=== PATIENT | female | born 1940 | race Caucasian/White ===

== ENCOUNTER 2017-05-30 16:30 | Inpatient (IN) | payer OTHER ==
--- NOTE | 2017-05-30 16:40 | DR.GENAD ---
HPI - HPI Comment HPI Comment: HISTORY CHF. COUGHING WHEN PATIENT LAY DOWN AND COUGH IS NON PRODUCTIVE. NO FEVER. PATIENT HAVE EXERSIONAL DYSPNEA SA WELL. - Complaint/Symptoms Chief Complaint Doctors Comments: INCREASING SOB AND WEIGHT GAIN TIMES FEW DAYS. - Nurses notes reviewed Nurses Notes Review: Yes - Source History Provided: Parent - Mode of Arrival Mode of Arrival: Wheelchair - Timing Came on: Suddenly - Duration Duration: Constant Duration: Days - Severity Severity: Moderate PMH - PMH Past Medical History: COPD, Dementia, Diabetes, Dyslipidemia, Hyperthyroidism Past Surgical History: Yes Surgical History: Appendectomy, Hysterectomy, Other - Social History Do you use any recreational Drugs:: No ROS - Review of Systems Constitutional: Weakness, Fatigue. negative: Chills, Fever Eyes: No Symptoms Reported. negative: Eye Pain, Discharge ENTM: No Symptoms Reported. negative: Ear Pain, Nose Discharge, Nose Congestion , Throat Pain Respiratoy: Non-Productive Cough, Short of Breath, Wheezing. negative: Hemoptysis Cardiovascular: Chest Pain, Edema Gastrointestinal/Abdominal: No Symptoms Reported Genitourinary: No Symptoms Reported Neurological: No Symptoms Reported Musculoskeletal: Muscle Pain Integumentary: No Symptoms Reported Hematologic/Lymphatic: No Symptoms Reported Endocrine: No Symptoms Reported All Other Systems: Reviewed and Negative PE - Vital Signs Vitals: Temperature 98.0 F Pulse Rate [Apical] 82 Pulse Rate 112 Respiratory Rate 18 Blood Pressure [Left Arm] 171/70 Blood Pressure [Right Arm] 137/61 Blood Pressure 144/60 O2 Sat by Pulse Oximetry 99 - General Limitations: No Limitations General Appearance: Alert - Head Head Exam: Normal Inspection - Eyes Eye exam: Normal Appearance - ENT ENT Exam: Normal External Ear Exam External Ear Exam: Normal External Inspection TM/Canal Exam: Bilateral Normal Nose Exam: Normal Nose Exam Mouth Exam: Normal Inspection Throat Exam: Normal Inspection - Neck Neck Exam: Trachea Midline - Chest Chest Inspection: Symmetric Chest Wall Rise - Respiratory Respiratory Exam: Normal Lung Sounds Bilat Respiratory Exam: Lower Clear to Auscultation - Cardiovascular Cardiovascular Exam: Regular Rate, Normal Rhythm, Normal Heart Sounds - Abdominal Exam Abdominal Exam: Normal Bowel Sounds, Soft. negative: Tenderness - Extremities Extremities Exam: Edema. negative: Calf Tenderness - Back Back Exam: Paraspinal Tenderness - Neurologic Neurological Exam: Alert, Oriented X3 - Psychiatric Psychiatric Exam: Normal Affect, Normal Mood - Skin Skin Exam: Erythema MDM - Differential Diagnosis Differential Diagnosis: CHF, COPD EXACERBATION, PNEUMONIA, BRONCHITIS, CP, [place] Course - Treatment Treatment: SEE ORDERS. IV LASIX, IV SOLUMEDROL AND NEB TREATMENT IN ED. - Reevaluation 1st: Improved - Consultation Consultation Comments: DISCUSS PATIENT WITH DR. CARTAGENA. HE WILL ADMIT PATIENT. - Education/Counseling Education/Counseling: Patient, Education Educated On: Treatment, Diagnosis ROR - Labs Reviewed Laboratory Results Reviewed?: Yes Result Diagrams: 05/30/17 16:38 05/30/17 16:38 Laboratory: WBC 8.3 X10^3/uL (3.6-10.0) 05/30/17 16:38 RBC 3.71 X10^6/uL (3.5-5.4) 05/30/17 16:38 Hgb 9.6 g/dL (12.0-16.0) L 05/30/17 16:38 Hct 29.7 % (36.0-47.0) L 05/30/17 16:38 MCV 80.2 fL (80.0-100.0) 05/30/17 16:38 MCH 26.0 pg (27.0-34.0) L 05/30/17 16:38 MCHC 32.4 g/dL (33.0-35.0) L 05/30/17 16:38 RDW 20.4 % (11.6-16.5) H 05/30/17 16:38 Plt Count 216 X10^3/uL (150.0-450.0) 05/30/17 16:38 Plt Count Comment Adequate (ADEQUATE) 05/30/17 16:38 MPV 9.8 fL (7.4-11.0) 05/30/17 16:38 Neut % 60.6 % (42.0-75.0) 05/30/17 16:38 Lymph % 29.5 % (21.0-51.0) 05/30/17 16:38 [place] % 5.1 % (0.0-13.0) 05/30/17 16:38 Eos % 3.5 % (0.9-2.9) H 05/30/17 16:38 Baso % 1.3 % (0.2-1.0) H 05/30/17 16:38 Neut # 5.0 x10^3/uL (2.2-4.8) H 05/30/17 16:38 Lymph # 2.4 X10^3/uL (1.3-2.9) 05/30/17 16:38 [place] # 0.4 x10^3/uL (0.3-0.8) 05/30/17 16:38 Eos # 0.3 x10^3/uL (0.0-0.2) H 05/30/17 16:38 Baso # 0.1 X10^3/uL (0.0-0.1) 05/30/17 16:38 Absolute Nucleated RBC 0.1 /100WBC 05/30/17 16:38 Plt Morphology Comment Normal (NORMAL) 05/30/17 16:38 RBC Morphology Abnormal (NORMAL) A 05/30/17 16:38 Anisocytosis 1+ A 05/30/17 16:38 Sodium 145 mmol/L (136-145) 05/30/17 16:38 Corrected Sodium 147 mmol/L (136-145) H 05/30/17 16:38 Potassium 4.6 mmol/L (3.5-5.1) 05/30/17 16:38 Chloride 107 mmol/L (98-107) 05/30/17 16:38 Carbon Dioxide 33.5 mmol/L (21-32) H 05/30/17 16:38 BUN 30 mg/dL (7-18) H 05/30/17 16:38 Creatinine 1.39 mg/dL (0.55-1.02) H 05/30/17 16:38 Est GFR (MDRD) Af Amer 48 (>60) L 05/30/17 16:38 Est GFR (MDRD) Non-Af 39 (>60) L 05/30/17 16:38 Glucose 171 mg/dL (65-99) H 05/30/17 16:38 Calcium 8.8 mg/dL (8.5-10.1) 05/30/17 16:38 Corrected Calcium 9.5 mg/dL (8.5-10.1) 05/30/17 16:38 Total Bilirubin 0.30 mg/dL (0.2-1.0) 05/30/17 16:38 AST 14 Units/L (15-37) L 05/30/17 16:38 ALT 16 Units/L (12-78) 05/30/17 16:38 Alkaline Phosphatase 79 Units/L (46-116) 05/30/17 16:38 Creatine Kinase 33 Units/L (26-192) 05/30/17 16:38 CK-MB (CK-2) 1.4 ng/mL (0-4.0) 05/30/17 16:38 CK/CKMB % Calc 4.2 % (<4) 05/30/17 16:38 Troponin I < 0.02 ng/mL (0-1.5) 05/30/17 16:38 B-Natriuretic Peptide 602 pg/mL (0-79) H* 05/30/17 16:38 Total Protein 7.4 g/dL (6.4-8.2) 05/30/17 16:38 Albumin 3.1 g/dL (3.4-5.0) L 05/30/17 16:38 Globulin 4.3 g/dL (2.5-4.5) 05/30/17 16:38 Albumin/Globulin Ratio 0.7 Ratio (1.1-2.1) L 05/30/17 16:38 Specimen Type Catherized urine 05/30/17 17:38 Urine Color Yellow (YELLOW) 05/30/17 17:38 Urine Appearance Clear (CLEAR) 05/30/17 17:38 Urine pH 5.0 (5.0 - 8.0) 05/30/17 17:38 Ur Specific [place] 1.010 (1.000-1.030) 05/30/17 17:38 Urine Protein Negative (NEGATIVE) 05/30/17 17:38 Urine Glucose (UA) Negative (NEGATIVE) 05/30/17 17:38 Urine Ketones Negative (NEGATIVE) 05/30/17 17:38 Urine Occult Blood 1+ (NEGATIVE) 05/30/17 17:38 Urine Nitrite Negative (NEGATIVE) 05/30/17 17:38 Urine Bilirubin Negative (NEGATIVE) 05/30/17 17:38 Urine Urobilinogen Normal (NORMAL) 05/30/17 17:38 Ur Leukocyte Esterase Negative (NEGATIVE) 05/30/17 17:38 Urine RBC 1-3 /HPF (NEGATIVE) 05/30/17 17:38 Urine WBC 2-3 /HPF (NEGATIVE) 05/30/17 17:38 Ur Squamous Epith Cells Rare /HPF (NEGATIVE) 05/30/17 17:38 Urine Bacteria Trace /HPF (NEGATIVE) 05/30/17 17:38 Ur Culture Indicated? No/not indicated 05/30/17 17:38 - XRAY XRAY Interpreted by: Radiologist XRAY Findings: REPORT DISCUSS WITH PATIENT. - EKG Rhythm: NSR (EKG NOTED.) - Diagnosis Discharge Problem: Respiratory distress CHF (congestive heart failure) Qualifiers: Congestive heart failure type: combined Congestive heart failure chronicity: acute on chronic Qualified Code(s): I50.43 - Acute on chronic combined systolic (congestive) and diastolic (congestive) heart failure Chest pain Qualifiers: Chest pain type: precordial pain Qualified Code(s): R07.2 - Precordial pain - Discharge Plan Disposition: 09 ADMITTED INPATIENT Condition: Stable - Follow ups/Referrals - Instructions
[2017-05-30] MEDS ORDERED: LASIX IVP ONE ×2 (16:55→17:05)
[2017-05-30] MEDS ORDERED: DUONEB 0.5 MG/3 MG NEB ONE (16:55)
[2017-05-30] MEDS ORDERED: SOLU-Medrol 125 MG VIAL IVP ONE (16:56)
[2017-05-30] MEDS ORDERED: DUONEB 0.5 MG/3 MG ONE (17:03)
[2017-05-30] MEDS ORDERED: SOLU-Medrol 125 MG VIAL ONE (17:05)
[2017-05-30 17:07] LABS: BASOPHILS # (AUTO) 0.1 X10^3/uL (0.0-0.1); BASOPHILS % (AUTO) 1.3 % (0.2-1.0); EOSINOPHILS # (AUTO) 0.3 x10^3/uL (0.0-0.2); EOSINOPHILS % (AUTO) 3.5 % (0.9-2.9); HEMATOCRIT 29.7 % (36.0-47.0); HEMOGLOBIN 9.6 g/dL (12.0-16.0); LYMPHOCYTES # (AUTO) 2.4 X10^3/uL (1.3-2.9); LYMPHOCYTES % (AUTO) 29.5 % (21.0-51.0); MEAN CORPUSCULAR HGB CONC 32.4 g/dL (33.0-35.0); MEAN CORPUSCULAR VOLUME 80.2 fL (80.0-100.0); MEAN PLATELET VOLUME 9.8 fL (7.4-11.0); MONOCYTES # (AUTO) 0.4 x10^3/uL (0.3-0.8); MONOCYTES % (AUTO) 5.1 % (0.0-13.0); NEUTROPHILS % (AUTO) 60.6 % (42.0-75.0); PLATELET COUNT 216 X10^3/uL (150.0-450.0); RED BLOOD COUNT 3.71 X10^6/uL (3.5-5.4); RED CELL DISTRIBUTION WIDTH 20.4 % (11.6-16.5); WHITE BLOOD COUNT 8.3 X10^3/uL (3.6-10.0)
[2017-05-30 17:19] LABS: BLOOD UREA NITROGEN 30 mg/dL (7-18); CALCIUM 8.8 mg/dL (8.5-10.1); CARBON DIOXIDE 33.5 mmol/L (21-32); CHLORIDE 107 mmol/L (98-107); COR NA(FOR HYPERGLY) 147 mmol/L (136-145); CREATININE 1.39 mg/dL (0.55-1.02); GLUCOSE 171 mg/dL (65-99); SODIUM 145 mmol/L (136-145); TROPONIN I < 0.02 ng/mL (0-1.5); eGFR BLACK RACES 48 (>60); eGFR NON BLACK RACES 39 (>60)
[2017-05-30 17:20] LABS: PLATELET MORPHOLOGY COMMENT NORMAL (NORMAL)
[2017-05-30 17:21] LABS: ANISOCYTOSIS 1+
[2017-05-30 17:24] LABS: ALANINE AMINOTRANSFERASE 16 Units/L (12-78); ALBUMIN 3.1 g/dL (3.4-5.0); ALKALINE PHOSPHATASE 79 Units/L (46-116); ASPARTATE AMINO TRANSFERASE 14 Units/L (15-37); CKMB % 4.2 % (<4); COR CA(FOR HYPOALB) 9.5 mg/dL (8.5-10.1); CREATINE KINASE 33 Units/L (26-192); CREATINE KINASE MB 1.4 ng/mL (0-4.0); TOTAL PROTEIN 7.4 g/dL (6.4-8.2)
[2017-05-30 17:41] LABS: B-TYPE NATRIURETIC PEPTIDE 602 pg/mL (0-79)
[2017-05-30 17:44] LABS: BILIRUBIN,URINE NEGATIVE (NEGATIVE); BLOOD/HEMOGLOBIN,URINE 1+ (NEGATIVE); GLUCOSE, URINE NEGATIVE (NEGATIVE); KETONES,URINE NEGATIVE (NEGATIVE); LEUKOCYTE ESTERASE ,URINE NEGATIVE (NEGATIVE); NITRITES,URINE NEGATIVE (NEGATIVE); PROTEIN,URINE NEGATIVE (NEGATIVE); UROBILINOGEN,URINE NORMAL (NORMAL)
--- NOTE | 2017-05-30 17:44 | RAD ---
HISTORY: Shortness of breath Study: Chest one view Comparison: November 02, 2016 Findings: The heart is enlarged. No congestive heart failure is noted. No acute alveolar infiltrates or pleura l effusions are identified. The bony thorax is unremarkable with the exception of old rib fractures on the left. IMPRESSION: Cardiomegaly without congestive heart failure Lungs clear Reported By:
[2017-05-30 17:59] LABS: APPEARANCE,URINE CLEAR (CLEAR); BACTERIA,URINE TRACE /HPF (NEGATIVE); COLOR,URINE YELLOW (YELLOW); SQUAMOUS EPITHELIAL CELL,UR RARE /HPF (NEGATIVE)
[2017-05-30] MEDS: TYLENOL #3 TAB (W/CODEINE) PO PRN (21:19)
[2017-05-30] MEDS: SNACK - Diabetic Appropriate PO SCH (21:21)
[2017-05-30] MEDS: HumuLIN R SUBCUT PRN (23:25)
[2017-05-30 23:40] LABS: CKMB % 3.8 % (<4); CREATINE KINASE 29 Units/L (26-192); CREATINE KINASE MB 1.1 ng/mL (0-4.0); TROPONIN I < 0.02 ng/mL (0-1.5)
[2017-05-31 05:25] LABS: BASOPHILS % (AUTO) 0.3 % (0.2-1.0); EOSINOPHILS % (AUTO) 0.1 % (0.9-2.9); HEMATOCRIT 30.6 % (36.0-47.0); MEAN CORPUSCULAR HEMOGLOBIN 25.7 pg (27.0-34.0); MEAN CORPUSCULAR HGB CONC 32.6 g/dL (33.0-35.0); MONOCYTES # (AUTO) 0 x10^3/uL (0.3-0.8); MONOCYTES % (AUTO) 0.5 % (0.0-13.0); NEUTROPHILS # (AUTO) 7.7 x10^3/uL (2.2-4.8); NEUTROPHILS % (AUTO) 88.1 % (42.0-75.0); PLATELET COUNT 199 X10^3/uL (150.0-450.0); RED BLOOD COUNT 3.87 X10^6/uL (3.5-5.4); RED CELL DISTRIBUTION WIDTH 20.3 % (11.6-16.5); WHITE BLOOD COUNT 8.7 X10^3/uL (3.6-10.0)
[2017-05-31] MEDS: TYLENOL #3 TAB (W/CODEINE) PO PRN (05:26)
[2017-05-31 05:32] LABS: ALBUMIN 2.9 g/dL (3.4-5.0); CALCIUM 8.6 mg/dL (8.5-10.1); CARBON DIOXIDE 34.3 mmol/L (21-32); CHOL/HDL RATIO 2.9 (0.0-5.0); COR CA(FOR HYPOALB) 9.5 mg/dL (8.5-10.1); CREATININE 1.34 mg/dL (0.55-1.02); TOTAL PROTEIN 7.3 g/dL (6.4-8.2)
[2017-05-31] MEDS: HumuLIN R SUBCUT PRN ×3 (05:41→20:49)
[2017-05-31 05:49] LABS: CREATINE KINASE 33 Units/L (26-192); CREATINE KINASE MB < 1.0 ng/mL (0-4.0); TROPONIN I < 0.02 ng/mL (0-1.5)
[2017-05-31 05:53] LABS: ANISOCYTOSIS 1+; PLATELET MORPHOLOGY COMMENT NORMAL (NORMAL)
--- NOTE | 2017-05-31 08:32 | RAD ---
Chest, one view Indication: Shortness of breath Comparison: May 30, 2017 Findings: There is stable enlargement of the cardiac silhouette without evidence of congestive failu re. No focal consolidation, significant effusion or pneumothorax is identified. Remote left-clavicul ar and rib fractures are again noted. Regional skeleton is otherwise intact. Impression: Stable exam without acute cardiopulmonary abnormality. Reported By:
[2017-05-31] MEDS ORDERED: PATIENT'S HOME MEDICATION SC SCH (09:00)
[2017-05-31] MEDS: NORVASC TAB 5 MG PO SCH (10:10)
[2017-05-31] MEDS ORDERED: PATIENT'S HOME MEDICATION (Apixaban [Eliquis] 2.5 MG) PO SCH (10:15)
--- NOTE | 2017-05-31 10:22 | DR.H&P ---
H&P - History & Physical for Day of: H&P Date: 05/30/17 - Chief Complaint Chief Complaint: COUGH, SHORTNESS OF BREATH, WEIGHT GAIN, CHEST PRESSURE - Allergies Allergies/Adverse Reactions: Allergies Allergy/AdvReac Type Severity Reaction Status Date / Time lovastatin Allergy Verified 05/30/17 16:56 - History of Present Illness History of Present Illness: IS A 76 YEAR OLD PATIENT OF OURS WHO PRESENTED TO THE EMERGENCY ROOM WITH COMPLAINTS OF NON-PRODUCTIVE COUGH, SHORTNESS OF BREATH, WEIGHT GAIN, AND CHEST PRESSURE. PATIENT REPORTED THAT SYMPTOMS BEGAN 2 DAYS PRIOR TO COMING TO THE ER. ON EXAMINATION, LUNGS ARE NOTED WITH WHEEZING BILATERALLY. SHE HAS BILATERAL PITTING EDEMA TO UPPER AND LOWER EXTREMETIES. BOWEL SOUNDS ARE NORMAL IN ALL QUADRANTS. ON ARRIVAL TO ER, VITALS ARE 98.0-82-18-99%-144/60. CBC REPORTS WBC 8.3, RBC 3.71, HGB 9.6, HCT 29.7. CMP REPORTS SODIUM 145, CARBON DIOXIDE 33.5, VUN 30, CREATININE 1.39, GLUCOSE 171, AST 14, BNP 602, ALBUMIN 3.1. SERIAL CARDIAC ENZYMES AND EKG WNL. CHEST XRAY STABLE. SHE WAS GIVEN SOLUMEDROL 125MG IV, LASIX 40MG IV, AND DUONEB X 1 DOSE IN ER. PATIENT REPORTED IMPROVEMENT IN SHORTNESS OF BREATH. WE ADMITTED PATIENT FOR FURTHER TREATMENT AND EVALUATION. WE WILL START HER ON DUOBEBS Q4H, LASIX 20MG IV X 2 DOSES, RECHECK LABS, AND FOLLOW UP WITH PATIENT IN AM. - Past Medical History Past Medical History: Anxiety, CHF, COPD, Dementia, Depression, Diabetes, Dyslipidemia, GERD, Hypothyroidism Additional Medical History: EMPHYSEMA, - Past Surgical History Surgical History: Appendectomy, Hysterectomy, Ortho Surgery - Family History Family Medical History: denies: Diabetes Mellitus, Cancer, IA, Coronary Artery Disease, Heart Failure, Sudden Cardiac , Hypertension - Social History Does patient currently use any type of tobacco product: No Have you used tobacco products in the last 12 months: No Type of Tobacco Use: None Does any household member use tobacco: No Alcohol Use: None Drug Use: None - Medications Home Medications: Acetaminophen with Codeine [Tylenol with Codeine #4 Tablet] 1 each PO Q8H PRN [History Confirmed 05/30/17] Diazepam [Valium] 5 mg PO BID PRN 05/30/17 [History Confirmed 05/30/17] Miglitol [Glyset] 1 tab PO TID 05/30/17 [History Confirmed 05/30/17] Sertraline HCl 50 mg PO AC 05/30/17 [History Confirmed 05/30/17] - Review of Systems Constitutional: Weakness. denies: No Symptoms Reported, See HPI, Fever, Chills , Sweats, Malaise, Other Eyes: No Symptoms Reported. denies: See HPI, Pain, Vision Change, Conjunctivae Inflammation, Eyelid Inflammation, Redness, Other ENT: No Symptoms Reported. denies: See HPI, Ear Pain, Ear Discharge, Nose Pain , Nose Discharge, Nose Congestion, Mouth Pain, Mouth Swelling, Throat Pain, Throat Swelling, Other Respiratory: See HPI, Cough, Shortness of Breath, SOB with Excertion Cardiovascular: Edema. denies: No Symptoms Reported, Chest Pain, See HPI, Palpitations, Orthopnea, Paroxysmal Noc. Dyspnea, Light Headedness, Other Gastrointestinal: No Symptoms Reported. denies: See HPI, Nausea, Vomiting, Abdominal Pain, Diarrhea, Constipation, Melena, Hematochezia, Other Genitourinary: No Symptoms Reported. denies: See HPI, Dysuria, Frequency, Incontinence, Hematuria, Retention, Other Musculoskeletal: No Symptoms Reported. denies: See HPI, Shoulder Pain, Arm Pain , Back Pain, Hand Pain, Leg Pain, Foot Pain, Neck Pain, Other Skin: No Symptoms Reported. denies: See HPI, Rash, Lesions, Jaundice, Bruising , Wound, Ecchymosis, Other Neurological: No Symptoms Reported. denies: See HPI, Weakness, Numbness, Incoordination, Change in Speech, Confusion, Seizures, Other - Physical Exam Vital Signs: Temperature 97.8 F Pulse Rate [Left Radial] 80 Pulse Rate [Apical] 82 Respiratory Rate 20 Blood Pressure [Left Arm] 149/67 O2 Sat by Pulse Oximetry 96 Oriented: Normal. negative: Time, Person, Place, Not Oriented, Unable to test, Other Eyes: Normal. negative: Blurred Vision, Diplopia, Discharge, Pain, Redness, Photophobia, Other Ear: Normal. negative: Right, Left, Swelling, Ecchymosis, Hemotypanum, Abrasion , Laceration Nose: Normal. negative: Injected, Discharge, Blood, Other Throat: Normal. negative: Tonsillar Hypertrophy, Red, Exudate, Dry, Other Respiratory: Wheezes Throughout. negative: Clear Throughout, Diminished Throughout, Rhonchi Throughout, Rales Throughout, RUL Clear, RML Clear, RLL Clear, KARLY Clear, LML Clear, LLL Clear, RUL Diminished, RML Diminished, RLL Diminished, KARLY Diminished, LML Diminished, LLL Diminished, RUL Absent, RML Absent, RLL Absent, KARLY Absent, LML Absent, LLL Absent, RUL Rhonchi, RML Rhonchi , RLL Rhonchi, KARLY Rhonchi, LML Rhonchi, LLL Rhonchi, RUL Insp. Wheeze, RML Insp. Wheeze, RLL Insp. Wheeze, KARLY Insp.Wheeze, LML Insp.Wheeze, LLL Insp.Wheeze, RUL Exp. Wheeze, RML Exp. Wheeze, RLL Exp. Wheeze, KARLY Exp. Wheeze , LML Exp. Wheeze, LLL Exp. Wheeze, RUL Rales, RML Rales, RLL Rales, KARLY Rales, LML Rales, LLL Rales, RUL Rub, RML Rub, RLL Rub, KARLY Rub, LML Rub, LLL Rub, RUL Squeak, RML Squeak, RLL Squeak, KARLY Squeak, LML Squeak, LLL Squeak Cardiovascular: Normal. negative: Tachycardia, Bradycardia, Irregular, S3, S4, Systolic, Diastolic, Murmur, Edema, Other : Normal. negative: Dysuria, Hematuria, Frequency, Discharge, Testicular Pain , Bleeding, , Other Auscultation: Bowel Sounds: Normal. negative: Bruit, Absent, Increased, Decreased, High Pitched, Other Palpation: Normal. negative: Spleen Enlarged, Liver Enlarged, Mass Pulsatile, Other Tenderness: Normal. negative: Diffuse, RUQ, RLQ, LUQ, LLQ, Epigastric, Periumbilical, Suprapubic, Mild, Moderate, Severe, Rebound, Guarding, Rigidity, Other Skin: Normal. negative: Decreased Turgur, Rash, Papular, Macular, Maculopapular , Vesicular, Pustular, Petechial, Red, Tender, Hot, Diaphoresis, Wound, Bruising , Ecchymosis, Other Musculoskeletal: Normal. negative: Right, Left, Shoulder, Clavicle, Arm, Elbow , Forearm, Wrist, Hand, Hip, Thigh, Knee, Leg, Ankle, Foot, Back:Thoracic, Back: Lumbar, Back:Midline, Back:Paraspinous, Pelvis, Swelling, Tender, Deformity, Pulse Deficit, Motor Deficit, Sensory Deficit, Instability, Crepitance Psychiatric: Normal. negative: Anxiety, Depression, Agitation, Other Mood Description: Calm. negative: Angry, Apathetic, Depressed, Fearful, Flat, Happy, Hostile, Sad, Suspicious, Withdrawn, Anxious, Appropriate, Labile Affect: Normal. negative: Angry, Anxious, Depressed, Flat, Hysterical, Quiet, Violent Speech Pattern: Clear. negative: Appropriate, Unclear, Inappropriate, Delayed, Slurred, Excessive, Aphasic, Artificially Ventilated - Assessment/Plan (1) CHF (congestive heart failure) Qualifiers: Congestive heart failure type: combined Congestive heart failure chronicity : acute on chronic Qualified Code(s): I50.43 - Acute on chronic combined systolic (congestive) and diastolic (congestive) heart failure Status: Acute Plan: CONTINUE LASIX 20MG IV X 2 DOSES, CHECK CHEST XRAY, CHECK ECHO, SUPPLEMENTAL OXYGEN, CONTINUE TO MONITOR (2) Chest pain Qualifiers: Chest pain type: precordial pain Ischemic chest pain type: I Qualified Code(s): R07.2 - Precordial pain Status: Acute Plan: CHECK SERIAL CARDIAC ENZYMES AND EKGS, CONTINUE ASPIRIN 81MG PO DAILY, SUPPLEMENTAL OXYGEN, CONTINUE TO MONITOR (3) Respiratory distress Status: Acute Plan: SUPPLEMENTAL OXYGEN, CONTINUE LASIX, CHECK CHEST XRAY, CONTINUE TO MONITOR
[2017-05-31] MEDS: NexIUM PO SCH (10:55)
[2017-05-31] MEDS: DIOVAN TAB 80 MG PO SCH (10:56)
[2017-05-31] MEDS: ZOLOFT PO SCH ×2 (10:56→18:51)
[2017-05-31] MEDS: LOPRESSOR TAB 25 MG PO SCH ×2 (10:56→20:50)
[2017-05-31] MEDS: MAG-OX TAB PO SCH ×2 (10:56→20:50)
[2017-05-31] MEDS: ELIQUIS PO SCH ×2 (10:56→20:50)
[2017-05-31] MEDS: ASPIRIN EC 81 MG PO SCH (10:57)
[2017-05-31] MEDS ORDERED: LASIX PO SCH (11:00)
--- NOTE | 2017-05-31 11:02 | PCM.PROG ---
Progress Note - Progress Note for Day of Date: 05/31/17 - Subjective Subjective: IS LYING IN BED ON MORNING ROUNDS. AT BEDSIDE. SHE CONTINUES WITH NON PRODUCTIVE COUGH AND SHORTNESS OF BREATH. SHE REPORTS CHEST PAIN WHEN TAKING DEEP BREATHS. ON EXAMINATION, WHEEZING NOTED BILATERLLY TO AUSCULTATION. PITTING EDEMA NOTED TO LOWER EXTREMETIES. VITALS THIS AM ARE 97.8-80-20-96%-149/67. CBC REPORTS WBC 8.7, HGB 10, HCT 30.6. CMP REPORTS SODIUM 143, CARBON DIOXIDE 34.3, BUN 30, CREATININE 1.34, GLUCOSE 292, AST 14, ALBUMIN 2.9, BNP 912. CHEST XRAY STABLE. SERIAL CARDIAC ENZYMES WNL. EKG REPORTS SINUS RHYTHM WITH RATE OF 87. WE WILL CONTINUE TO CHECK SERIAL ENZYMES AND EKG. WE WILL ORDER A ECHO, RECHECK LABS, AND FOLLOW UP WITH PATIENT IN AM. - Past Medical Family Social History Past Med/Fam/Surg Hx: No changes since H&P Allergies: Allergies lovastatin Allergy (Verified 05/30/17 16:56) - Review of Systems ROS: No change since H&P - Vital Signs and I&O's Vital Signs: Temperature 97.8 F Pulse Rate [Left Radial] 80 Pulse Rate [Apical] 82 Respiratory Rate 20 Blood Pressure [Left Arm] 149/67 O2 Sat by Pulse Oximetry 96 Intake and Output: Intake & Output 05/28/17 05/29/17 05/30/17 05/31/17 11:59 11:59 11:59 11:59 Intake Total 240 Output Total 2350 Balance -0 - Physical Exam Oriented: Normal. negative: Time, Person, Place, Not Oriented, Unable to test, Other Eyes: Normal. negative: Blurred Vision, Diplopia, Discharge, Pain, Redness, Photophobia, Other Ear: Normal. negative: Right, Left, Swelling, Ecchymosis, Hemotypanum, Abrasion , Laceration Nose: Normal. negative: Injected, Discharge, Blood, Other Throat: Normal. negative: Tonsillar Hypertrophy, Red, Exudate, Dry, Other Respiratory: Right, Left, Wheezes Cardiovascular: Normal. negative: Tachycardia, Bradycardia, Irregular, S3, S4, Systolic, Diastolic, Murmur, Edema, Other : Normal. negative: Dysuria, Hematuria, Frequency, Discharge, Testicular Pain , Bleeding, , Other Auscultation: Bowel Sounds: Normal. negative: Bruit, Absent, Increased, Decreased, High Pitched, Other Palpation: Normal Tenderness: Normal. negative: Diffuse, RUQ, RLQ, LUQ, LLQ, Epigastric, Periumbilical, Suprapubic, Mild, Moderate, Severe, Rebound, Guarding, Rigidity, Other Skin: Normal. negative: Decreased Turgur, Rash, Papular, Macular, Maculopapular , Vesicular, Pustular, Petechial, Red, Tender, Hot, Diaphoresis, Wound, Bruising , Ecchymosis, Other Musculoskeletal: Normal. negative: Right, Left, Shoulder, Clavicle, Arm, Elbow , Forearm, Wrist, Hand, Hip, Thigh, Knee, Leg, Ankle, Foot, Back:Thoracic, Back: Lumbar, Back:Midline, Back:Paraspinous, Pelvis, Swelling, Tender, Deformity, Pulse Deficit, Motor Deficit, Sensory Deficit, Instability, Crepitance Psychiatric: Normal. negative: Anxiety, Depression, Agitation, Other Mood Description: Calm. negative: Angry, Apathetic, Depressed, Fearful, Flat, Happy, Hostile, Sad, Suspicious, Withdrawn, Anxious, Appropriate, Labile Affect: Normal. negative: Angry, Anxious, Depressed, Flat, Hysterical, Quiet, Violent Speech Pattern: Clear. negative: Appropriate, Unclear, Inappropriate, Delayed, Slurred, Excessive, Aphasic, Artificially Ventilated - Laboratory and Diagnostics Result Diagrams: 05/31/17 04:48 05/31/17 04:48 Labs: Laboratory WBC 8.7 X10^3/uL (3.6-10.0) 05/31/17 04:48 RBC 3.87 X10^6/uL (3.5-5.4) 05/31/17 04:48 Hgb 10.0 g/dL (12.0-16.0) L 05/31/17 04:48 Hct 30.6 % (36.0-47.0) L 05/31/17 04:48 MCV 79.0 fL (80.0-100.0) L 05/31/17 04:48 MCH 25.7 pg (27.0-34.0) L 05/31/17 04:48 MCHC 32.6 g/dL (33.0-35.0) L 05/31/17 04:48 RDW 20.3 % (11.6-16.5) H 05/31/17 04:48 Plt Count 199 X10^3/uL (150.0-450.0) 05/31/17 04:48 Plt Count Comment Adequate (ADEQUATE) 05/31/17 04:48 MPV 10.0 fL (7.4-11.0) 05/31/17 04:48 Neut % 88.1 % (42.0-75.0) H 05/31/17 04:48 Lymph % 11.0 % (21.0-51.0) L 05/31/17 04:48 [place] % 0.5 % (0.0-13.0) 05/31/17 04:48 Eos % 0.1 % (0.9-2.9) L 05/31/17 04:48 Baso % 0.3 % (0.2-1.0) 05/31/17 04:48 Neut # 7.7 x10^3/uL (2.2-4.8) H 05/31/17 04:48 Lymph # 1.0 X10^3/uL (1.3-2.9) L 05/31/17 04:48 [place] # 0 x10^3/uL (0.3-0.8) L 05/31/17 04:48 Eos # 0.0 x10^3/uL (0.0-0.2) 05/31/17 04:48 Baso # 0.0 X10^3/uL (0.0-0.1) 05/31/17 04:48 Absolute Nucleated RBC 0.0 /100WBC 05/31/17 04:48 Plt Morphology Comment Normal (NORMAL) 05/31/17 04:48 RBC Morphology Abnormal (NORMAL) A 05/31/17 04:48 Anisocytosis 1+ A 05/31/17 04:48 Sodium 143 mmol/L (136-145) 05/31/17 04:48 Corrected Sodium 148 mmol/L (136-145) H 05/31/17 04:48 Potassium 4.8 mmol/L (3.5-5.1) 05/31/17 04:48 Chloride 104 mmol/L (98-107) 05/31/17 04:48 Carbon Dioxide 34.3 mmol/L (21-32) H 05/31/17 04:48 BUN 30 mg/dL (7-18) H 05/31/17 04:48 Creatinine 1.34 mg/dL (0.55-1.02) H 05/31/17 04:48 Est GFR (MDRD) Af Amer 50 (>60) L 05/31/17 04:48 Est GFR (MDRD) Non-Af 41 (>60) L 05/31/17 04:48 Glucose 292 mg/dL (65-99) H 05/31/17 04:48 Calcium 8.6 mg/dL (8.5-10.1) 05/31/17 04:48 Corrected Calcium 9.5 mg/dL (8.5-10.1) 05/31/17 04:48 Total Bilirubin 0.20 mg/dL (0.2-1.0) 05/31/17 04:48 AST 14 Units/L (15-37) L 05/31/17 04:48 ALT 17 Units/L (12-78) 05/31/17 04:48 Alkaline Phosphatase 77 Units/L (46-116) 05/31/17 04:48 Creatine Kinase 33 Units/L (26-192) 05/31/17 04:48 CK-MB (CK-2) < 1.0 ng/mL (0-4.0) 05/31/17 04:48 CK/CKMB % Calc 3.0 % (<4) 05/31/17 04:48 Troponin I < 0.02 ng/mL (0-1.5) 05/31/17 04:48 B-Natriuretic Peptide 912 pg/mL (0-79) H* 05/31/17 04:48 Total Protein 7.3 g/dL (6.4-8.2) 05/31/17 04:48 Albumin 2.9 g/dL (3.4-5.0) L 05/31/17 04:48 Globulin 4.4 g/dL (2.5-4.5) 05/31/17 04:48 Albumin/Globulin Ratio 0.7 Ratio (1.1-2.1) L 05/31/17 04:48 Triglycerides 62 mg/dL (0-150) 05/31/17 04:48 Cholesterol 144 mg/dL (0-200) 05/31/17 04:48 LDL Cholesterol, Calc 82 mg/dL (0-100) 05/31/17 04:48 HDL Cholesterol 50 mg/dL (40-60) 05/31/17 04:48 Cholesterol/HDL Ratio 2.9 (0.0-5.0) 05/31/17 04:48 Specimen Type Catherized urine 05/30/17 17:38 Urine Color Yellow (YELLOW) 05/30/17 17:38 Urine Appearance Clear (CLEAR) 05/30/17 17:38 Urine pH 5.0 (5.0 - 8.0) 05/30/17 17:38 Ur Specific [place] 1.010 (1.000-1.030) 05/30/17 17:38 Urine Protein Negative (NEGATIVE) 05/30/17 17:38 Urine Glucose (UA) Negative (NEGATIVE) 05/30/17 17:38 Urine Ketones Negative (NEGATIVE) 05/30/17 17:38 Urine Occult Blood 1+ (NEGATIVE) 05/30/17 17:38 Urine Nitrite Negative (NEGATIVE) 05/30/17 17:38 Urine Bilirubin Negative (NEGATIVE) 05/30/17 17:38 Urine Urobilinogen Normal (NORMAL) 05/30/17 17:38 Ur Leukocyte Esterase Negative (NEGATIVE) 05/30/17 17:38 Urine RBC 1-3 /HPF (NEGATIVE) 05/30/17 17:38 Urine WBC 2-3 /HPF (NEGATIVE) 05/30/17 17:38 Ur Squamous Epith Cells Rare /HPF (NEGATIVE) 05/30/17 17:38 Urine Bacteria Trace /HPF (NEGATIVE) 05/30/17 17:38 Ur Culture Indicated? No/not indicated 05/30/17 17:38 - Plan (1) CHF (congestive heart failure) Status: Acute Qualifiers: Congestive heart failure type: combined Congestive heart failure chronicity : acute on chronic Qualified Code(s): I50.43 - Acute on chronic combined systolic (congestive) and diastolic (congestive) heart failure Plan: CONTINUE LASIX 20MG IV X 2 DOSES, CHECK CHEST XRAY, CHECK ECHO, SUPPLEMENTAL OXYGEN, CONTINUE TO MONITOR (2) Chest pain Status: Acute Qualifiers: Chest pain type: precordial pain Ischemic chest pain type: I Qualified Code(s): R07.2 - Precordial pain Plan: CHECK SERIAL CARDIAC ENZYMES AND EKGS, CONTINUE ASPIRIN 81MG PO DAILY, SUPPLEMENTAL OXYGEN, CONTINUE TO MONITOR (3) Respiratory distress Status: Acute Plan: SUPPLEMENTAL OXYGEN, CONTINUE LASIX, CHECK CHEST XRAY, CONTINUE TO MONITOR (4) Hypertension Status: Acute Qualifiers: Hypertension type: essential hypertension Qualified Code(s): I10 - Essential (primary) hypertension Plan: CONTINUE NORVASC 5MG PO DAILY, CONTINUE DIOVAN 80MG DAILY, CONTINUE TO MONITOR (5) Anxiety Status: Chronic Plan: CONTINUE VALIUM 50MG PO BID PRN, CONTINUE TO MONITOR (6) COPD (chronic obstructive pulmonary disease) Status: Chronic Qualifiers: COPD type: unspecified COPD Chronic bronchitis type: C Emphysema type: E Qualified Code(s): J44.9 - Chronic obstructive pulmonary disease, unspecified Plan: CONTINUE TO MONITOR (7) Depression Status: Chronic Qualifiers: Depression Type: major depressive disorder Major depression recurrence: recurrent Active/Remission status: remission status unspecified Major depression episode severity: M Psychotic features: P Trimester: T Qualified Code(s): F33.9 - Major depressive disorder, recurrent, unspecified Plan: CONTINUE ZOLOFT 50MG DAILY, CONTINUE TO MONITOR (8) GERD (gastroesophageal reflux disease) Status: Chronic Qualifiers: Esophagitis presence: esophagitis presence not specified Qualified Code(s) : K21.9 - Gastro-esophageal reflux disease without esophagitis Plan: CONTINUE NEXIUM 40MG DAILY, CONTINUE T OMONITOR (9) Hypothyroidism Status: Chronic Qualifiers: Hypothyroidism type: acquired Qualified Code(s): E03.9 - Hypothyroidism, unspecified Plan: CONTINUE SYNTHROID 112MCG PO DAILY, CONTINUE TO MONITOR (10) Hyperlipidemia Status: Acute Qualifiers: Hyperlipidemia type: mixed hyperlipidemia Qualified Code(s): E78.2 - Mixed hyperlipidemia Plan: CONTINUE ZOCOR 40MG HS, CONTINUE TO MONITOR (11) Diabetes mellitus Status: Acute Qualifiers: Diabetes mellitus type: type 2 Diabetes mellitus complication status: with unspecified complications Diabetes mellitus complication detail: D Diabetic retinopathy severity: D Proliferative retinopathy type: P Diabetes mellitus macular edema: D Diabetes mellitus jail insulin use: with adjunct faculty for medical terminology use Laterality: L Chronic kidney disease stage: C Qualified Code(s): E11.8 - Type 2 diabetes mellitus with unspecified complications; Z79.4 - [facility] ( current) use of insulin Plan: CONTINUE GLYSET 25MG TID, CONTINUE TRESIBA 32 UNITS DAILY, CONTINUE SSI, CONTINUE TO MONITOR
[2017-05-31] MEDS: LASIX IVP SCH ×2 (11:06→20:49)
[2017-05-31 11:28] LABS: ABG BASE EXCESS 9.5 mmol/L (-2.0-2.0)
[2017-05-31 11:32] LABS: ABG ALLEN TEST POS; ABG HCO3 35.3 mmol/L (22-26)
[2017-05-31 11:51] LABS: CKMB % 3.6 % (<4); CREATINE KINASE 28 Units/L (26-192); CREATINE KINASE MB < 1.0 ng/mL (0-4.0); TROPONIN I < 0.02 ng/mL (0-1.5)
[2017-05-31] MEDS: DUONEB 0.5 MG/3 MG NEB SCH ×3 (12:07→20:19)
[2017-05-31] MEDS: MIGLITOL PO SCH ×2 (13:50→21:49)
[2017-05-31 15:23] LABS: CKMB % 3.8 % (<4); CREATINE KINASE 29 Units/L (26-192); CREATINE KINASE MB 1.1 ng/mL (0-4.0); TROPONIN I < 0.02 ng/mL (0-1.5)
[2017-05-31 16:21] VITALS: BMI 36.6
[2017-05-31] MEDS: SYNTHROID 112 mcg TAB PO SCH (17:41)
[2017-05-31 19:17] LABS: CKMB % 2.7 % (<4); CREATINE KINASE 49 Units/L (26-192); CREATINE KINASE MB 1.3 ng/mL (0-4.0); TROPONIN I < 0.02 ng/mL (0-1.5)
[2017-05-31] MEDS ORDERED: PREPARATION H OINT RECTAL PRN (20:20)
[2017-05-31] MEDS: SINGULAIR TAB 10 MG PO SCH (20:50)
[2017-05-31] MEDS: NEURONTIN TAB 600 MG PO SCH (20:50)
[2017-05-31] MEDS: ARICEPT TAB 10 MG PO SCH (20:50)
[2017-05-31] MEDS: ZOCOR TAB 40 MG PO SCH (20:50)
[2017-05-31] MEDS: SNACK - Diabetic Appropriate PO SCH (20:51)
[2017-06-01] MEDS: DUONEB 0.5 MG/3 MG NEB SCH ×6 (01:39→20:48)
[2017-06-01 05:24] LABS: BASOPHILS % (AUTO) 0.5 % (0.2-1.0); EOSINOPHILS % (AUTO) 0.4 % (0.9-2.9); HEMATOCRIT 28.8 % (36.0-47.0); HEMOGLOBIN 9.4 g/dL (12.0-16.0); LYMPHOCYTES # (AUTO) 2.4 X10^3/uL (1.3-2.9); LYMPHOCYTES % (AUTO) 25.7 % (21.0-51.0); MEAN CORPUSCULAR HEMOGLOBIN 26.3 pg (27.0-34.0); MEAN CORPUSCULAR HGB CONC 32.6 g/dL (33.0-35.0); MEAN CORPUSCULAR VOLUME 80.6 fL (80.0-100.0); MONOCYTES # (AUTO) 0.5 x10^3/uL (0.3-0.8); MONOCYTES % (AUTO) 5.6 % (0.0-13.0); NEUTROPHILS # (AUTO) 6.3 x10^3/uL (2.2-4.8); NEUTROPHILS % (AUTO) 67.8 % (42.0-75.0); PLATELET COUNT 211 X10^3/uL (150.0-450.0); RED BLOOD COUNT 3.57 X10^6/uL (3.5-5.4); RED CELL DISTRIBUTION WIDTH 20.4 % (11.6-16.5); WHITE BLOOD COUNT 9.3 X10^3/uL (3.6-10.0)
[2017-06-01 05:29] LABS: ALBUMIN 2.8 g/dL (3.4-5.0); CALCIUM 8.6 mg/dL (8.5-10.1); CARBON DIOXIDE 36.7 mmol/L (21-32); COR CA(FOR HYPOALB) 9.6 mg/dL (8.5-10.1); CREATININE 1.42 mg/dL (0.55-1.02); TOTAL PROTEIN 6.7 g/dL (6.4-8.2)
[2017-06-01] MEDS: HumuLIN R SUBCUT PRN ×3 (05:41→16:29)
[2017-06-01] MEDS: MIGLITOL PO SCH (05:42)
[2017-06-01 05:53] LABS: ANISOCYTOSIS 1+; PLATELET MORPHOLOGY COMMENT NORMAL (NORMAL)
--- NOTE | 2017-06-01 06:11 | RAD ---
HISTORY: Shortness of breath Study: Single-view chest, done portably Comparison: May 31, 2017 Findings: Cardiac monitoring electrodes are noted on the chest. The trachea is midline. There is cardiomegaly with aortic uncoiling. There is some improvement in pulmonary vascular congestion. Right lung is chemo ar. There is loss of definition of the left hemidiaphragm which may indicate atelectasis, edema, inf iltrate or pleural fluid on the left. No acute osseous changes are seen. IMPRESSION: Cardiomegaly with slight interval improvement in pulmonary vascular congestion. Loss of definition of left hemidiaphragm, likely indicating development of atelectasis, edema, infil trate or pleural fluid in the left lung base. Reported By:
[2017-06-01] MEDS: LOPRESSOR TAB 25 MG PO SCH ×2 (09:11→20:48)
[2017-06-01] MEDS: MAG-OX TAB PO SCH ×2 (09:12→20:47)
[2017-06-01] MEDS: NexIUM PO SCH (09:12)
[2017-06-01] MEDS: ELIQUIS PO SCH ×2 (09:12→20:49)
[2017-06-01] MEDS: NORVASC TAB 5 MG PO SCH (09:13)
[2017-06-01] MEDS: DIOVAN TAB 80 MG PO SCH (09:13)
[2017-06-01] MEDS: ASPIRIN EC 81 MG PO SCH (09:13)
[2017-06-01] MEDS: ZOLOFT PO SCH (09:19)
[2017-06-01] MEDS: JANUVIA PO SCH (10:36)
--- NOTE | 2017-06-01 11:00 | PCM.PROG ---
Progress Note - Progress Note for Day of Date: 06/01/17 - Subjective Subjective: IS LYING IN BED ON MORNING ROUNDS. AT BEDSIDE. SHE CONTINUES WITH NON PRODUCTIVE COUGH AND SHORTNESS OF BREATH WITH SLIGHT IMPROVEMENT IN SHORTNESS OF BREATH NOTED. SHE CURRENTLY DENIES CHEST PAIN. ON EXAMINATION, WHEEZING NOTED BILATERLLY TO AUSCULTATION. VITALS THIS AM ARE 97.8- 80-20-96%-164/68. CBC REPORTS WBC 9.3, HGB 9.4, HCT 28.8. CMP REPORTS SODIUM 147 , CARBON DIOXIDE 36.7, BUN 38, CREATININE 1.42, GLUCOSE 223, AST 9, ALBUMIN 2.8 , BNP 980. CHEST XRAY REPORTS CARDIOMEGALY WITH SLIGHT INTERVAL IMPROVEMENT IN PULMONARY VASCULAR CONGESTION; LOSS OF DEFINITION OF LEFT HEMIDAPHRAHM, LIKELY INDICATING DEVELOPMENT OF ATELECTASIS,EDEMA,INFILTRATE, OR PLEURAL FLUID IN THE LEFT LUNG BASE. SERIAL ENZYMES AND EKG WNL. WE WILL OBTAIN A ECHO TODAY, RECHECK LABS, AND FOLLOW UP WITH PATIENT IN AM. - Past Medical Family Social History Past Med/Fam/Surg Hx: No changes since H&P Allergies: Allergies lovastatin Allergy (Verified 05/30/17 16:56) - Review of Systems ROS: No change since H&P - Vital Signs and I&O's Vital Signs: Temperature 97.4 F Pulse Rate [Right Brachial] 77 Pulse Rate [Left Radial] 74 Pulse Rate 67 Respiratory Rate 20 Blood Pressure [Left Arm] 130/59 Blood Pressure [Right Arm] 134/64 O2 Sat by Pulse Oximetry 99 Intake and Output: Intake & Output 05/29/17 05/30/17 05/31/17 06/01/17 11:59 11:59 11:59 11:59 Intake Total 680 Output Total 1200 Balance -520 - Physical Exam Oriented: Normal. negative: Time, Person, Place, Not Oriented, Unable to test, Other Eyes: Normal. negative: Blurred Vision, Diplopia, Discharge, Pain, Redness, Photophobia, Other Ear: Normal. negative: Right, Left, Swelling, Ecchymosis, Hemotypanum, Abrasion , Laceration Nose: Normal. negative: Injected, Discharge, Blood, Other Throat: Normal. negative: Tonsillar Hypertrophy, Red, Exudate, Dry, Other Respiratory: Right, Left, Wheezes Cardiovascular: Normal. negative: Tachycardia, Bradycardia, Irregular, S3, S4, Systolic, Diastolic, Murmur, Edema, Other : Normal. negative: Dysuria, Hematuria, Frequency, Discharge, Testicular Pain , Bleeding, , Other Auscultation: Bowel Sounds: Normal. negative: Bruit, Absent, Increased, Decreased, High Pitched, Other Palpation: Normal Tenderness: Normal. negative: Diffuse, RUQ, RLQ, LUQ, LLQ, Epigastric, Periumbilical, Suprapubic, Mild, Moderate, Severe, Rebound, Guarding, Rigidity, Other Skin: Normal. negative: Decreased Turgur, Rash, Papular, Macular, Maculopapular , Vesicular, Pustular, Petechial, Red, Tender, Hot, Diaphoresis, Wound, Bruising , Ecchymosis, Other Musculoskeletal: Normal. negative: Right, Left, Shoulder, Clavicle, Arm, Elbow , Forearm, Wrist, Hand, Hip, Thigh, Knee, Leg, Ankle, Foot, Back:Thoracic, Back: Lumbar, Back:Midline, Back:Paraspinous, Pelvis, Swelling, Tender, Deformity, Pulse Deficit, Motor Deficit, Sensory Deficit, Instability, Crepitance Psychiatric: Normal. negative: Anxiety, Depression, Agitation, Other Mood Description: Calm. negative: Angry, Apathetic, Depressed, Fearful, Flat, Happy, Hostile, Sad, Suspicious, Withdrawn, Anxious, Appropriate, Labile Affect: Normal. negative: Angry, Anxious, Depressed, Flat, Hysterical, Quiet, Violent Speech Pattern: Clear, Appropriate - Laboratory and Diagnostics Result Diagrams: 06/01/17 04:35 06/01/17 04:35 Labs: Laboratory WBC 9.3 X10^3/uL (3.6-10.0) 06/01/17 04:35 RBC 3.57 X10^6/uL (3.5-5.4) 06/01/17 04:35 Hgb 9.4 g/dL (12.0-16.0) L 06/01/17 04:35 Hct 28.8 % (36.0-47.0) L 06/01/17 04:35 MCV 80.6 fL (80.0-100.0) 06/01/17 04:35 MCH 26.3 pg (27.0-34.0) L 06/01/17 04:35 MCHC 32.6 g/dL (33.0-35.0) L 06/01/17 04:35 RDW 20.4 % (11.6-16.5) H 06/01/17 04:35 Plt Count 211 X10^3/uL (150.0-450.0) 06/01/17 04:35 Plt Count Comment Adequate (ADEQUATE) 06/01/17 04:35 MPV 10.0 fL (7.4-11.0) 06/01/17 04:35 Neut % 67.8 % (42.0-75.0) 06/01/17 04:35 Lymph % 25.7 % (21.0-51.0) 06/01/17 04:35 [place] % 5.6 % (0.0-13.0) 06/01/17 04:35 Eos % 0.4 % (0.9-2.9) L 06/01/17 04:35 Baso % 0.5 % (0.2-1.0) 06/01/17 04:35 Neut # 6.3 x10^3/uL (2.2-4.8) H 06/01/17 04:35 Lymph # 2.4 X10^3/uL (1.3-2.9) 06/01/17 04:35 [place] # 0.5 x10^3/uL (0.3-0.8) 06/01/17 04:35 Eos # 0.0 x10^3/uL (0.0-0.2) 06/01/17 04:35 Baso # 0.0 X10^3/uL (0.0-0.1) 06/01/17 04:35 Absolute Nucleated RBC 0.0 /100WBC 06/01/17 04:35 Plt Morphology Comment Normal (NORMAL) 06/01/17 04:35 RBC Morphology Abnormal (NORMAL) A 06/01/17 04:35 Anisocytosis 1+ A 06/01/17 04:35 Sample Site R rad 05/31/17 11:08 ABG pH 7.440 (7.35-7.45) 05/31/17 11:08 ABG pCO2 52.0 mmHg (35.0-45.0) H* 05/31/17 11:08 ABG pO2 88.0 mmHg (80.0-100.0) 05/31/17 11:08 ABG HCO3 35.3 mmol/L (22-26) H* 05/31/17 11:08 ABG O2 Saturation 97.0 % (90-100) 05/31/17 11:08 ABG Base Excess 9.5 mmol/L (-2.0-2.0) H 05/31/17 11:08 [place] Test Pos 05/31/17 11:08 A-a Gradient 47.0 mmHg 05/31/17 11:08 FiO2 28.000 05/31/17 11:08 Blood Gas Comments Lester well, afh 05/31/17 11:08 Sodium 144 mmol/L (136-145) 06/01/17 04:35 Corrected Sodium 147 mmol/L (136-145) H 06/01/17 04:35 Potassium 4.3 mmol/L (3.5-5.1) 06/01/17 04:35 Chloride 105 mmol/L (98-107) 06/01/17 04:35 Carbon Dioxide 36.7 mmol/L (21-32) H 06/01/17 04:35 BUN 38 mg/dL (7-18) H 06/01/17 04:35 Creatinine 1.42 mg/dL (0.55-1.02) H 06/01/17 04:35 Est GFR (MDRD) Af Amer 47 (>60) L 06/01/17 04:35 Est GFR (MDRD) Non-Af 38 (>60) L 06/01/17 04:35 Glucose 223 mg/dL (65-99) H 06/01/17 04:35 Calcium 8.6 mg/dL (8.5-10.1) 06/01/17 04:35 Corrected Calcium 9.6 mg/dL (8.5-10.1) 06/01/17 04:35 Total Bilirubin 0.20 mg/dL (0.2-1.0) 06/01/17 04:35 AST 9 Units/L (15-37) L 06/01/17 04:35 ALT 13 Units/L (12-78) 06/01/17 04:35 Alkaline Phosphatase 63 Units/L (46-116) 06/01/17 04:35 Creatine Kinase 49 Units/L (26-192) 05/31/17 18:38 CK-MB (CK-2) 1.3 ng/mL (0-4.0) 05/31/17 18:38 CK/CKMB % Calc 2.7 % (<4) 05/31/17 18:38 Troponin I < 0.02 ng/mL (0-1.5) 05/31/17 18:38 B-Natriuretic Peptide 980 pg/mL (0-79) H* 06/01/17 04:35 Total Protein 6.7 g/dL (6.4-8.2) 06/01/17 04:35 Albumin 2.8 g/dL (3.4-5.0) L 06/01/17 04:35 Globulin 3.9 g/dL (2.5-4.5) 06/01/17 04:35 Albumin/Globulin Ratio 0.7 Ratio (1.1-2.1) L 06/01/17 04:35 Triglycerides 62 mg/dL (0-150) 05/31/17 04:48 Cholesterol 144 mg/dL (0-200) 05/31/17 04:48 LDL Cholesterol, Calc 82 mg/dL (0-100) 05/31/17 04:48 HDL Cholesterol 50 mg/dL (40-60) 05/31/17 04:48 Cholesterol/HDL Ratio 2.9 (0.0-5.0) 05/31/17 04:48 Specimen Type Catherized urine 05/30/17 17:38 Urine Color Yellow (YELLOW) 05/30/17 17:38 Urine Appearance Clear (CLEAR) 05/30/17 17:38 Urine pH 5.0 (5.0 - 8.0) 05/30/17 17:38 Ur Specific [place] 1.010 (1.000-1.030) 05/30/17 17:38 Urine Protein Negative (NEGATIVE) 05/30/17 17:38 Urine Glucose (UA) Negative (NEGATIVE) 05/30/17 17:38 Urine Ketones Negative (NEGATIVE) 05/30/17 17:38 Urine Occult Blood 1+ (NEGATIVE) 05/30/17 17:38 Urine Nitrite Negative (NEGATIVE) 05/30/17 17:38 Urine Bilirubin Negative (NEGATIVE) 05/30/17 17:38 Urine Urobilinogen Normal (NORMAL) 05/30/17 17:38 Ur Leukocyte Esterase Negative (NEGATIVE) 05/30/17 17:38 Urine RBC 1-3 /HPF (NEGATIVE) 05/30/17 17:38 Urine WBC 2-3 /HPF (NEGATIVE) 05/30/17 17:38 Ur Squamous Epith Cells Rare /HPF (NEGATIVE) 05/30/17 17:38 Urine Bacteria Trace /HPF (NEGATIVE) 05/30/17 17:38 Ur Culture Indicated? No/not indicated 05/30/17 17:38 - Plan (1) CHF (congestive heart failure) Status: Acute Qualifiers: Congestive heart failure type: combined Congestive heart failure chronicity : acute on chronic Qualified Code(s): I50.43 - Acute on chronic combined systolic (congestive) and diastolic (congestive) heart failure Plan: CONTINUE LASIX 20MG IV X 2 DOSES, CHECK CHEST XRAY, CHECK ECHO, SUPPLEMENTAL OXYGEN, CONTINUE TO MONITOR (2) Chest pain Status: Acute Qualifiers: Chest pain type: precordial pain Ischemic chest pain type: I Qualified Code(s): R07.2 - Precordial pain Plan: CONTINUE ASPIRIN 81MG PO DAILY, SUPPLEMENTAL OXYGEN, CONTINUE TO MONITOR (3) Respiratory distress Status: Acute Plan: SUPPLEMENTAL OXYGEN, CONTINUE LASIX, CHECK CHEST XRAY, CONTINUE TO MONITOR (4) Hypertension Status: Acute Qualifiers: Hypertension type: essential hypertension Qualified Code(s): I10 - Essential (primary) hypertension Plan: CONTINUE NORVASC 5MG PO DAILY, CONTINUE DIOVAN 80MG DAILY, CONTINUE TO MONITOR (5) Anxiety Status: Chronic Plan: CONTINUE VALIUM 50MG PO BID PRN, CONTINUE TO MONITOR (6) COPD (chronic obstructive pulmonary disease) Status: Chronic Qualifiers: COPD type: unspecified COPD Chronic bronchitis type: C Emphysema type: E Qualified Code(s): J44.9 - Chronic obstructive pulmonary disease, unspecified Plan: CONTINUE TO MONITOR (7) Depression Status: Chronic Qualifiers: Depression Type: major depressive disorder Major depression recurrence: recurrent Active/Remission status: remission status unspecified Major depression episode severity: M Psychotic features: P Trimester: T Qualified Code(s): F33.9 - Major depressive disorder, recurrent, unspecified Plan: CONTINUE ZOLOFT 50MG DAILY, CONTINUE TO MONITOR (8) GERD (gastroesophageal reflux disease) Status: Chronic Qualifiers: Esophagitis presence: esophagitis presence not specified Qualified Code(s) : K21.9 - Gastro-esophageal reflux disease without esophagitis Plan: CONTINUE NEXIUM 40MG DAILY, CONTINUE T OMONITOR (9) Hypothyroidism Status: Chronic Qualifiers: Hypothyroidism type: acquired Qualified Code(s): E03.9 - Hypothyroidism, unspecified Plan: CONTINUE SYNTHROID 112MCG PO DAILY, CONTINUE TO MONITOR (10) Hyperlipidemia Status: Acute Qualifiers: Hyperlipidemia type: mixed hyperlipidemia Qualified Code(s): E78.2 - Mixed hyperlipidemia Plan: CONTINUE ZOCOR 40MG HS, CONTINUE TO MONITOR (11) Diabetes mellitus Status: Acute Qualifiers: Diabetes mellitus type: type 2 Diabetes mellitus complication status: with unspecified complications Diabetes mellitus complication detail: D Diabetic retinopathy severity: D Proliferative retinopathy type: P Diabetes mellitus macular edema: D Diabetes mellitus 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
[2017-06-01] MEDS ORDERED: PATIENT'S HOME MEDICATION SUBCUT PRN (11:42)
[2017-06-01] MEDS: PATIENT'S HOME MEDICATION PO SCH (12:18)
[2017-06-01] MEDS ORDERED: STARLIX PO SCH (16:30)
[2017-06-01] MEDS: SYNTHROID 112 mcg TAB PO SCH (17:24)
[2017-06-01] MEDS: SNACK - Diabetic Appropriate PO SCH (20:46)
[2017-06-01] MEDS: SINGULAIR TAB 10 MG PO SCH (20:47)
[2017-06-01] MEDS: ZOCOR TAB 40 MG PO SCH (20:47)
[2017-06-01] MEDS: VALIUM PO PRN (20:47)
[2017-06-01] MEDS: NEURONTIN TAB 600 MG PO SCH (20:47)
[2017-06-01] MEDS: ARICEPT TAB 10 MG PO SCH (20:47)
[2017-06-01] MEDS: TYLENOL #3 TAB (W/CODEINE) PO PRN (20:47)
[2017-06-02] MEDS: DUONEB 0.5 MG/3 MG NEB SCH ×6 (01:35→21:44)
[2017-06-02] MEDS: HumuLIN R SUBCUT PRN ×3 (05:41→18:24)
[2017-06-02 06:48] LABS: ALBUMIN 2.6 g/dL (3.4-5.0); CALCIUM 8.5 mg/dL (8.5-10.1); CARBON DIOXIDE 35.2 mmol/L (21-32); COR CA(FOR HYPOALB) 9.6 mg/dL (8.5-10.1); CREATININE 1.49 mg/dL (0.55-1.02); TOTAL PROTEIN 6.3 g/dL (6.4-8.2)
[2017-06-02 07:22] LABS: BASOPHILS # (AUTO) 0.1 X10^3/uL (0.0-0.1); BASOPHILS % (AUTO) 0.8 % (0.2-1.0); EOSINOPHILS # (AUTO) 0.4 x10^3/uL (0.0-0.2); EOSINOPHILS % (AUTO) 3.9 % (0.9-2.9); HEMATOCRIT 29.8 % (36.0-47.0); HEMOGLOBIN 9.6 g/dL (12.0-16.0); LYMPHOCYTES # (AUTO) 2.4 X10^3/uL (1.3-2.9); LYMPHOCYTES % (AUTO) 26.5 % (21.0-51.0); MEAN CORPUSCULAR HGB CONC 32.3 g/dL (33.0-35.0); MEAN CORPUSCULAR VOLUME 80.5 fL (80.0-100.0); MEAN PLATELET VOLUME 10.1 fL (7.4-11.0); MONOCYTES # (AUTO) 0.6 x10^3/uL (0.3-0.8); MONOCYTES % (AUTO) 6.5 % (0.0-13.0); NEUTROPHILS # (AUTO) 5.7 x10^3/uL (2.2-4.8); NEUTROPHILS % (AUTO) 62.3 % (42.0-75.0); PLATELET COUNT 201 X10^3/uL (150.0-450.0); RED BLOOD COUNT 3.71 X10^6/uL (3.5-5.4); WHITE BLOOD COUNT 9.1 X10^3/uL (3.6-10.0)
[2017-06-02 07:57] LABS: ANISOCYTOSIS 1+; PLATELET MORPHOLOGY COMMENT NORMAL (NORMAL)
--- NOTE | 2017-06-02 08:51 | RAD ---
Chest, one view Indication: Shortness of breath Comparison: June 01, 2017 Findings: There is stable mild cardiomegaly without evidence of congestive failure. There is a persi stent but unchanged small left pleural effusion. Adjacent left basilar opacities, likely reflecting atelectasis also appear similar. The upper left lung and right lung are clear. No pneumothorax is id entified. Impression: Stable small left pleural effusion with adjacent basilar opacities, likely atelectasis with or witho ut superimposed pneumonia. Otherwise, no new disease or significant change since yesterday's exam. Reported By:
[2017-06-02] MEDS: JANUVIA PO SCH (09:53)
[2017-06-02] MEDS: ASPIRIN EC 81 MG PO SCH (09:54)
[2017-06-02] MEDS: LOPRESSOR TAB 25 MG PO SCH ×2 (09:54→20:45)
[2017-06-02] MEDS: DIOVAN TAB 80 MG PO SCH (09:54)
[2017-06-02] MEDS: ELIQUIS PO SCH ×2 (09:54→20:44)
[2017-06-02] MEDS: NORVASC TAB 5 MG PO SCH (09:54)
[2017-06-02] MEDS: NexIUM PO SCH (09:54)
[2017-06-02] MEDS: ZOLOFT PO SCH ×2 (09:54→10:32)
[2017-06-02] MEDS: MAG-OX TAB PO SCH ×2 (09:54→20:44)
[2017-06-02] MEDS: PATIENT'S HOME MEDICATION PO SCH (09:56)
[2017-06-02] MEDS ORDERED: PATIENT'S HOME MEDICATION SUBCUT PRN (10:20)
[2017-06-02 11:30] LABS: CREATININE,URINE 84.52 mg/dL (29-226); MICROALBUMIN,URINE 77.9 mg/L
--- NOTE | 2017-06-02 12:16 | PCM.PROG ---
Progress Note - Progress Note for Day of Date: 06/02/17 - Subjective Subjective: IS LYING IN BED ON MORNING ROUNDS. AT BEDSIDE. SHE CONTINUES WITH NON PRODUCTIVE COUGH BUT DENIES SHORTNESS OF BREATH OR CHEST PAIN. ON EXAMINATION, WHEEZING NOTED BILATERLLY TO AUSCULTATION. VITALS THIS AM ARE 97.6-62-20-98%-137/62. CBC REPORTS WBC 9.1, HGB 9.6, HCT 29.8. CMP REPORTS SODIUM 141, CARBON DIOXIDE 35.2, BUN 39, CREATININE 1.49, GLUCOSE 271, AST 13, ALBUMIN 2.6, BNP DECREASED FROM 980 TO 331. HEMOGLOBIN A1C 8.6. CHEST XRAY REPORTS SMALL LEFT PLEURAL EFFUSION WITH ADJACENT BASILAR OPACITIES, LIKELY ATELECTASIS. ECHO REPORTED EJECTION FRACTION OF 63%. WE WILL START ALBUMIN 25% DAILY, INCREASE TRESEBA TO 45 UNITS AT HS, START HEMOCYTE 1 CAPSULE DAILY. WE WILL CHECK A URINE MICROALBUMIN AND HEMOGLOBIN A1C. WE WILL RECHECK LABS AND FOLLOW UP WITH PATIENT IN AM. - Past Medical Family Social History Past Med/Fam/Surg Hx: No changes since H&P Allergies: Allergies lovastatin Allergy (Verified 05/30/17 16:56) - Review of Systems ROS: No change since H&P - Vital Signs and I&O's Vital Signs: Temperature 97.6 F Pulse Rate [Right Brachial] 62 Pulse Rate [Left Radial] 66 Pulse Rate 87 Respiratory Rate 20 Blood Pressure [Left Arm] 135/58 Blood Pressure [Right Arm] 134/64 O2 Sat by Pulse Oximetry 97 Intake and Output: Intake & Output 05/31/17 06/01/17 06/02/17 06/03/17 11:59 11:59 11:59 11:59 Intake Total 680 1140 Output Total 1200 1050 Balance -520 90 - Physical Exam Oriented: Normal. negative: Time, Person, Place, Not Oriented, Unable to test, Other Eyes: Normal. negative: Blurred Vision, Diplopia, Discharge, Pain, Redness, Photophobia, Other Ear: Normal. negative: Right, Left, Swelling, Ecchymosis, Hemotypanum, Abrasion , Laceration Nose: Normal. negative: Injected, Discharge, Blood, Other Throat: Normal. negative: Tonsillar Hypertrophy, Red, Exudate, Dry, Other Respiratory: Right, Left, Wheezes Cardiovascular: Normal. negative: Tachycardia, Bradycardia, Irregular, S3, S4, Systolic, Diastolic, Murmur, Edema, Other : Normal. negative: Dysuria, Hematuria, Frequency, Discharge, Testicular Pain , Bleeding, , Other Auscultation: Bowel Sounds: Normal. negative: Bruit, Absent, Increased, Decreased, High Pitched, Other Palpation: Normal Tenderness: Normal. negative: Diffuse, RUQ, RLQ, LUQ, LLQ, Epigastric, Periumbilical, Suprapubic, Mild, Moderate, Severe, Rebound, Guarding, Rigidity, Other Skin: Normal. negative: Decreased Turgur, Rash, Papular, Macular, Maculopapular , Vesicular, Pustular, Petechial, Red, Tender, Hot, Diaphoresis, Wound, Bruising , Ecchymosis, Other Musculoskeletal: Normal. negative: Right, Left, Shoulder, Clavicle, Arm, Elbow , Forearm, Wrist, Hand, Hip, Thigh, Knee, Leg, Ankle, Foot, Back:Thoracic, Back: Lumbar, Back:Midline, Back:Paraspinous, Pelvis, Swelling, Tender, Deformity, Pulse Deficit, Motor Deficit, Sensory Deficit, Instability, Crepitance Psychiatric: Normal. negative: Anxiety, Depression, Agitation, Other Mood Description: Calm. negative: Angry, Apathetic, Depressed, Fearful, Flat, Happy, Hostile, Sad, Suspicious, Withdrawn, Anxious, Appropriate, Labile Affect: Normal. negative: Angry, Anxious, Depressed, Flat, Hysterical, Quiet, Violent Speech Pattern: Clear, Appropriate - Laboratory and Diagnostics Result Diagrams: 06/02/17 04:27 06/02/17 04:27 Labs: Laboratory WBC 9.1 X10^3/uL (3.6-10.0) 06/02/17 04:27 RBC 3.71 X10^6/uL (3.5-5.4) 06/02/17 04:27 Hgb 9.6 g/dL (12.0-16.0) L 06/02/17 04:27 Hct 29.8 % (36.0-47.0) L 06/02/17 04:27 MCV 80.5 fL (80.0-100.0) 06/02/17 04:27 MCH 26.0 pg (27.0-34.0) L 06/02/17 04:27 MCHC 32.3 g/dL (33.0-35.0) L 06/02/17 04:27 RDW 21.0 % (11.6-16.5) H 06/02/17 04:27 Plt Count 201 X10^3/uL (150.0-450.0) 06/02/17 04:27 Plt Count Comment Adequate (ADEQUATE) 06/02/17 04:27 MPV 10.1 fL (7.4-11.0) 06/02/17 04:27 Neut % 62.3 % (42.0-75.0) 06/02/17 04:27 Lymph % 26.5 % (21.0-51.0) 06/02/17 04:27 [place] % 6.5 % (0.0-13.0) 06/02/17 04:27 Eos % 3.9 % (0.9-2.9) H 06/02/17 04:27 Baso % 0.8 % (0.2-1.0) 06/02/17 04:27 Neut # 5.7 x10^3/uL (2.2-4.8) H 06/02/17 04:27 Lymph # 2.4 X10^3/uL (1.3-2.9) 06/02/17 04:27 [place] # 0.6 x10^3/uL (0.3-0.8) 06/02/17 04:27 Eos # 0.4 x10^3/uL (0.0-0.2) H 06/02/17 04:27 Baso # 0.1 X10^3/uL (0.0-0.1) 06/02/17 04:27 Absolute Nucleated RBC 0.2 /100WBC 06/02/17 04:27 Plt Morphology Comment Normal (NORMAL) 06/02/17 04:27 RBC Morphology Abnormal (NORMAL) A 06/02/17 04:27 Anisocytosis 1+ A 06/02/17 04:27 Sample Site R rad 05/31/17 11:08 ABG pH 7.440 (7.35-7.45) 05/31/17 11:08 ABG pCO2 52.0 mmHg (35.0-45.0) H* 05/31/17 11:08 ABG pO2 88.0 mmHg (80.0-100.0) 05/31/17 11:08 ABG HCO3 35.3 mmol/L (22-26) H* 05/31/17 11:08 ABG O2 Saturation 97.0 % (90-100) 05/31/17 11:08 ABG Base Excess 9.5 mmol/L (-2.0-2.0) H 05/31/17 11:08 [place]jo Test Pos 05/31/17 11:08 A-a Gradient 47.0 mmHg 05/31/17 11:08 FiO2 28.000 05/31/17 11:08 Blood Gas Comments Lester well, afh 05/31/17 11:08 Sodium 141 mmol/L (136-145) 06/02/17 04:27 Corrected Sodium 145 mmol/L (136-145) 06/02/17 04:27 Potassium 4.8 mmol/L (3.5-5.1) 06/02/17 04:27 Chloride 104 mmol/L (98-107) 06/02/17 04:27 Carbon Dioxide 35.2 mmol/L (21-32) H 06/02/17 04:27 BUN 39 mg/dL (7-18) H 06/02/17 04:27 Creatinine 1.49 mg/dL (0.55-1.02) H 06/02/17 04:27 Est GFR (MDRD) Af Amer 44 (>60) L 06/02/17 04:27 Est GFR (MDRD) Non-Af 36 (>60) L 06/02/17 04:27 Glucose 271 mg/dL (65-99) H 06/02/17 04:27 Hemoglobin A1c 8.6 % (4.5-6.2) H 06/02/17 04:27 Calcium 8.5 mg/dL (8.5-10.1) 06/02/17 04:27 Corrected Calcium 9.6 mg/dL (8.5-10.1) 06/02/17 04:27 Total Bilirubin 0.20 mg/dL (0.2-1.0) 06/02/17 04:27 AST 13 Units/L (15-37) L 06/02/17 04:27 ALT 13 Units/L (12-78) 06/02/17 04:27 Alkaline Phosphatase 62 Units/L (46-116) 06/02/17 04:27 Creatine Kinase 49 Units/L (26-192) 05/31/17 18:38 CK-MB (CK-2) 1.3 ng/mL (0-4.0) 05/31/17 18:38 CK/CKMB % Calc 2.7 % (<4) 05/31/17 18:38 Troponin I < 0.02 ng/mL (0-1.5) 05/31/17 18:38 B-Natriuretic Peptide 331 pg/mL (0-79) H 06/02/17 04:27 Total Protein 6.3 g/dL (6.4-8.2) L 06/02/17 04:27 Albumin 2.6 g/dL (3.4-5.0) L 06/02/17 04:27 Globulin 3.7 g/dL (2.5-4.5) 06/02/17 04:27 Albumin/Globulin Ratio 0.7 Ratio (1.1-2.1) L 06/02/17 04:27 Triglycerides 62 mg/dL (0-150) 05/31/17 04:48 Cholesterol 144 mg/dL (0-200) 05/31/17 04:48 LDL Cholesterol, Calc 82 mg/dL (0-100) 05/31/17 04:48 HDL Cholesterol 50 mg/dL (40-60) 05/31/17 04:48 Cholesterol/HDL Ratio 2.9 (0.0-5.0) 05/31/17 04:48 Specimen Type Catherized urine 05/30/17 17:38 Urine Color Yellow (YELLOW) 05/30/17 17:38 Urine Appearance Clear (CLEAR) 05/30/17 17:38 Urine pH 5.0 (5.0 - 8.0) 05/30/17 17:38 Ur Specific [place] 1.010 (1.000-1.030) 05/30/17 17:38 Urine Protein Negative (NEGATIVE) 05/30/17 17:38 Urine Glucose (UA) Negative (NEGATIVE) 05/30/17 17:38 Urine Ketones Negative (NEGATIVE) 05/30/17 17:38 Urine Occult Blood 1+ (NEGATIVE) 05/30/17 17:38 Urine Nitrite Negative (NEGATIVE) 05/30/17 17:38 Urine Bilirubin Negative (NEGATIVE) 05/30/17 17:38 Urine Urobilinogen Normal (NORMAL) 05/30/17 17:38 Ur Leukocyte Esterase Negative (NEGATIVE) 05/30/17 17:38 Urine RBC 1-3 /HPF (NEGATIVE) 05/30/17 17:38 Urine WBC 2-3 /HPF (NEGATIVE) 05/30/17 17:38 Ur Squamous Epith Cells Rare /HPF (NEGATIVE) 05/30/17 17:38 Urine Bacteria Trace /HPF (NEGATIVE) 05/30/17 17:38 Ur Culture Indicated? No/not indicated 05/30/17 17:38 Urine Creatinine 84.52 mg/dL (29-226) 06/02/17 10:36 Urine Microalbumin 77.9 mg/L 06/02/17 10:36 Microalb/Creat Ratio 92 mg/g cre (0-29) H 06/02/17 10:36 - Plan (1) CHF (congestive heart failure) Status: Acute Qualifiers: Congestive heart failure type: combined Congestive heart failure chronicity : acute on chronic Qualified Code(s): I50.43 - Acute on chronic combined systolic (congestive) and diastolic (congestive) heart failure Plan: LASIX 40MG PO BID, CHECK CHEST XRAY, SUPPLEMENTAL OXYGEN, CONTINUE TO MONITOR (2) Chest pain Status: Acute Qualifiers: Chest pain type: precordial pain Ischemic chest pain type: I Qualified Code(s): R07.2 - Precordial pain Plan: CONTINUE ASPIRIN 81MG PO DAILY, SUPPLEMENTAL OXYGEN, CONTINUE TO MONITOR (3) Respiratory distress Status: Acute Plan: SUPPLEMENTAL OXYGEN, CONTINUE LASIX, CHECK CHEST XRAY, CONTINUE TO MONITOR (4) Hypertension Status: Acute Qualifiers: Hypertension type: essential hypertension Qualified Code(s): I10 - Essential (primary) hypertension Plan: CONTINUE NORVASC 5MG PO DAILY, CONTINUE DIOVAN 80MG DAILY, CONTINUE TO MONITOR (5) Anxiety Status: Chronic Plan: CONTINUE VALIUM 50MG PO BID PRN, CONTINUE TO MONITOR (6) COPD (chronic obstructive pulmonary disease) Status: Chronic Qualifiers: COPD type: unspecified COPD Chronic bronchitis type: C Emphysema type: E Qualified Code(s): J44.9 - Chronic obstructive pulmonary disease, unspecified Plan: CONTINUE TO MONITOR (7) Depression Status: Chronic Qualifiers: Depression Type: major depressive disorder Major depression recurrence: recurrent Active/Remission status: remission status unspecified Major depression episode severity: M Psychotic features: P Trimester: T Qualified Code(s): F33.9 - Major depressive disorder, recurrent, unspecified Plan: CONTINUE ZOLOFT 50MG DAILY, CONTINUE TO MONITOR (8) GERD (gastroesophageal reflux disease) Status: Chronic Qualifiers: Esophagitis presence: esophagitis presence not specified Qualified Code(s) : K21.9 - Gastro-esophageal reflux disease without esophagitis Plan: CONTINUE NEXIUM 40MG DAILY, CONTINUE T OMONITOR (9) Hypothyroidism Status: Chronic Qualifiers: Hypothyroidism type: acquired Qualified Code(s): E03.9 - Hypothyroidism, unspecified Plan: CONTINUE SYNTHROID 112MCG PO DAILY, CONTINUE TO MONITOR (10) Hyperlipidemia Status: Acute Qualifiers: Hyperlipidemia type: mixed hyperlipidemia Qualified Code(s): E78.2 - Mixed hyperlipidemia Plan: CONTINUE ZOCOR 40MG HS, CONTINUE TO MONITOR (11) Diabetes mellitus Status: Acute Qualifiers: Diabetes mellitus type: type 2 Diabetes mellitus complication status: with unspecified complications Diabetes mellitus complication detail: D Diabetic retinopathy severity: D Proliferative retinopathy type: P Diabetes mellitus macular edema: D 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 Laterality: L Chronic kidney disease stage: C Qualified Code(s): E11.8 - Type 2 diabetes mellitus with unspecified complications; Z79.4 - MCC ( current) use of insulin Plan: CONTINUE GLYSET 25MG TID, INCREASE TRESEBA TO 45 UNITS DAILY, CONTINUE SSI , CONTINUE TO MONITOR (12) Hypoalbuminemia Status: Acute Plan: START ALBUMIN 25% DAILY, CHECK URINE MICROALBUMIN (13) Anemia Status: Acute Qualifiers: Anemia type: unspecified type Iron deficiency anemia type: I Vitamin B12 deficiency anemia type: V Folate deficiency anemia type: F Bone marrow failure anemia type: B Hemolytic anemia type: H Other causes of anemia: O Chronic kidney disease stage: C Qualified Code(s): D64.9 - Anemia, unspecified Plan: START HEMOCYTE PLUS 1 CAPSULE DAILY
[2017-06-02] MEDS: ALBUMIN HUMAN 25%- 100ML 100 ML IV SCH (13:00)
[2017-06-02] MEDS: HEMOCYTE-PLUS PO SCH (13:00)
[2017-06-02] MEDS: SYNTHROID 112 mcg TAB PO SCH (17:34)
[2017-06-02] MEDS: LASIX PO SCH (17:34)
[2017-06-02] MEDS: SNACK - Diabetic Appropriate PO SCH (20:16)
[2017-06-02] MEDS: ARICEPT TAB 10 MG PO SCH (20:44)
[2017-06-02] MEDS: TYLENOL #3 TAB (W/CODEINE) PO PRN (20:45)
[2017-06-02] MEDS: SINGULAIR TAB 10 MG PO SCH (20:45)
[2017-06-02] MEDS: ZOCOR TAB 40 MG PO SCH (20:45)
[2017-06-02] MEDS: NEURONTIN TAB 600 MG PO SCH (20:45)
[2017-06-02] MEDS: VALIUM PO PRN (20:45)
[2017-06-03] MEDS: DUONEB 0.5 MG/3 MG NEB SCH ×3 (00:15→08:55)
[2017-06-03 05:41] LABS: CALCIUM 8.4 mg/dL (8.5-10.1); CARBON DIOXIDE 33.5 mmol/L (21-32); COR CA(FOR HYPOALB) 9.2 mg/dL (8.5-10.1); CREATININE 1.59 mg/dL (0.55-1.02); TOTAL PROTEIN 6.5 g/dL (6.4-8.2)
[2017-06-03 05:48] LABS: BASOPHILS % (AUTO) 0.6 % (0.2-1.0); EOSINOPHILS # (AUTO) 0.3 x10^3/uL (0.0-0.2); EOSINOPHILS % (AUTO) 4.7 % (0.9-2.9); HEMATOCRIT 28.9 % (36.0-47.0); HEMOGLOBIN 9.2 g/dL (12.0-16.0); LYMPHOCYTES # (AUTO) 2.1 X10^3/uL (1.3-2.9); LYMPHOCYTES % (AUTO) 28.1 % (21.0-51.0); MEAN CORPUSCULAR VOLUME 81.4 fL (80.0-100.0); MEAN PLATELET VOLUME 10.1 fL (7.4-11.0); MONOCYTES # (AUTO) 0.5 x10^3/uL (0.3-0.8); MONOCYTES % (AUTO) 6.5 % (0.0-13.0); NEUTROPHILS # (AUTO) 4.5 x10^3/uL (2.2-4.8); NEUTROPHILS % (AUTO) 60.1 % (42.0-75.0); PLATELET COUNT 191 X10^3/uL (150.0-450.0); RED BLOOD COUNT 3.55 X10^6/uL (3.5-5.4); RED CELL DISTRIBUTION WIDTH 20.9 % (11.6-16.5); WHITE BLOOD COUNT 7.5 X10^3/uL (3.6-10.0)
[2017-06-03] MEDS: HumuLIN R SUBCUT PRN (06:02)
[2017-06-03] MEDS: LASIX PO SCH (06:02)
[2017-06-03 06:24] LABS: ANISOCYTOSIS 1+; PLATELET MORPHOLOGY COMMENT NORMAL (NORMAL)
--- NOTE | 2017-06-03 07:53 | RAD ---
HISTORY: Shortness of breath Study: Single-view chest, done portably Comparison: June 02, 2017 Findings: Cardiac monitoring electrodes are noted on the chest. The trachea is midline. There is cardiomegaly with pulmonary vascular congestion. Improving aeration is seen in the left lung base with some resid ual atelectasis and possibly a small amount of pleural fluid present. Right lung continues to be chemo ar. No acute osseous abnormalities are seen. IMPRESSION: Improving aeration in the left lung base. A small amount of atelectasis and pleural fluid remain. Reported By:
[2017-06-03] MEDS: ALBUMIN HUMAN 25%- 100ML 100 ML IV SCH (08:51)
[2017-06-03] MEDS: ELIQUIS PO SCH (08:52)
[2017-06-03] MEDS: DIOVAN TAB 80 MG PO SCH (08:52)
[2017-06-03] MEDS: ASPIRIN EC 81 MG PO SCH (08:52)
[2017-06-03] MEDS: HEMOCYTE-PLUS PO SCH (08:52)
[2017-06-03] MEDS: JANUVIA PO SCH (08:52)
[2017-06-03] MEDS: MAG-OX TAB PO SCH (08:52)
[2017-06-03] MEDS: NexIUM PO SCH (08:52)
[2017-06-03] MEDS: LOPRESSOR TAB 25 MG PO SCH (08:53)
[2017-06-03] MEDS: NORVASC TAB 5 MG PO SCH (08:53)
[2017-06-03] MEDS: PATIENT'S HOME MEDICATION PO SCH (08:57)
[2017-06-03 12:11] VITALS: BP 122/56
[2017-06-03] MEDS: ZOLOFT PO SCH (12:11)
--- NOTE | 2017-06-06 03:52 | DR.CARTERD ---
- Discharge Summary for: Discharge Summary for Date of:: 06/03/17 - Admission Date Date of Admission: 05/31/17 - Admission Diagnoses Admission Diagnosis: (1) CHF (congestive heart failure) (2) Chest pain (3) Respiratory distress - Discharge Date Discharge Date: 06/03/17 - Discharge Diagnoses Discharge Diagnosis: (1) CHF (congestive heart failure) (2) Chest pain (3) Respiratory distress (4) Hypertension (5) Anxiety (6) COPD (chronic obstructive pulmonary disease) (7) Depression (8) GERD (gastroesophageal reflux disease) (9) Hypothyroidism (10) Hyperlipidemia (11) Diabetes mellitus (12) Hypoalbuminemia (13) Anemia - Hospital Course Hospital Course: DAY ONE OF HOSPITAL STAY, IS A 76 YEAR OLD PATIENT OF OURS WHO PRESENTED TO THE EMERGENCY ROOM WITH COMPLAINTS OF NON-PRODUCTIVE COUGH, SHORTNESS OF BREATH, WEIGHT GAIN, AND CHEST PRESSURE. PATIENT REPORTED THAT SYMPTOMS BEGAN 2 DAYS PRIOR TO COMING TO THE ER. ON EXAMINATION, LUNGS WERE NOTED WITH WHEEZING BILATERALLY. SHE HAD BILATERAL PITTING EDEMA TO UPPER AND LOWER EXTREMITIES. BOWEL SOUNDS WERE NORMAL IN ALL QUADRANTS. ON ARRIVAL TO ER, VITALS ARE 98.0-82-18-99%-144/60. CBC REPORTED WBC 8.3, RBC 3.71, HGB 9.6, HCT 29.7. CMP REPORTED SODIUM 145, CARBON DIOXIDE 33.5, VUN 30, CREATININE 1.39, GLUCOSE 171, AST 14, BNP 602, ALBUMIN 3.1. SERIAL CARDIAC ENZYMES AND EKG WNL. CHEST XRAY STABLE. SHE WAS GIVEN SOLUMEDROL 125MG IV, LASIX 40MG IV, AND DUONEB X 1 DOSE IN ER. PATIENT REPORTED IMPROVEMENT IN SHORTNESS OF BREATH. WE ADMITTED PATIENT FOR FURTHER TREATMENT AND EVALUATION. WE STARTED HER ON DUOBEBS Q4H, LASIX 20MG IV X 2 DOSES, AND MONITORED. DAY TWO OF HOSPITAL STAY, WAS LYING IN BED ON MORNING ROUNDS. AT BEDSIDE. SHE CONTINUED WITH NON-PRODUCTIVE COUGH AND SHORTNESS OF BREATH. SHE REPORTED CHEST PAIN WHEN TAKING DEEP BREATHS. ON EXAMINATION, WHEEZING NOTED BILATERALLY TO AUSCULTATION. PITTING EDEMA NOTED TO LOWER EXTREMETIES. VITALS WERE 97.8-80-20-96%-149/67. CBC REPORTED WBC 8.7, HGB 10, HCT 30.6. CMP REPORTS SODIUM 143, CARBON DIOXIDE 34.3, BUN 30, CREATININE 1.34, GLUCOSE 292, AST 14, ALBUMIN 2.9, BNP 912. CHEST XRAY STABLE. SERIAL CARDIAC ENZYMES WNL. EKG REPORTED SINUS RHYTHM WITH RATE OF 87. WE CONTINUED TO CHECK SERIAL ENZYMES AND EKG. WE PLANNED FOR AN ECHO. DAY THREE OF HOSPITAL STAY, AT BEDSIDE. PATIENT CONTINUED WITH NON PRODUCTIVE COUGH AND SHORTNESS OF BREATH WITH SLIGHT IMPROVEMENT IN SHORTNESS OF BREATH NOTED. SHE DENIED CHEST PAIN. ON EXAMINATION, WHEEZING NOTED BILATERALLY TO AUSCULTATION. VITALS WERE 97.8-80-20-96%-164/68. CBC REPORTED WBC 9.3, HGB 9.4, HCT 28.8. CMP REPORTED SODIUM 147, CARBON DIOXIDE 36.7, BUN 38 , CREATININE 1.42, GLUCOSE 223, AST 9, ALBUMIN 2.8, BNP 980. CHEST XRAY REPORTED CARDIOMEGALY WITH SLIGHT INTERVAL IMPROVEMENT IN PULMONARY VASCULAR CONGESTION; LOSS OF DEFINITION OF LEFT HEMIDIAPHRAGM, LIKELY INDICATING DEVELOPMENT OF ATELECTASIS,EDEMA,INFILTRATE, OR PLEURAL FLUID IN THE LEFT LUNG BASE. SERIAL ENZYMES AND EKG WNL. DAY FOUR OF HOSPITALS STAY, PATIENT CONTINUED WITH NON-PRODUCTIVE COUGH BUT DENIED SHORTNESS OF BREATH OR CHEST PAIN. AT BEDSIDE. ON EXAMINATION, WHEEZING CONTINUED BILATERALLY TO AUSCULTATION. VITALS WERE 97.6-62-20-98%-137/ 62. CBC REPORTED WBC 9.1, HGB 9.6, HCT 29.8. CMP REPORTED SODIUM 141, CARBON DIOXIDE 35.2, BUN 39, CREATININE 1.49, GLUCOSE 271, AST 13, ALBUMIN 2.6, BNP DECREASED FROM 980 TO 331. HEMOGLOBIN A1C 8.6. CHEST XRAY REPORTED SMALL LEFT PLEURAL EFFUSION WITH ADJACENT BASILAR OPACITIES, LIKELY ATELECTASIS. ECHO REPORTED EJECTION FRACTION OF 63%. WE STARTED ALBUMIN 25% DAILY, INCREASED TRESEBA TO 45 UNITS AT HS, AND STARTED HEMOCYTE 1 CAPSULE DAILY. WE WILL CHECK A URINE MICROALBUMIN AND HEMOGLOBIN A1C. WE WILL RECHECK LABS AND FOLLOW UP WITH PATIENT IN AM. DAY FIVE OF HOSPITAL STAY, PATIENT REPORTED SHE WAS FEELING BETTER. LUNGS NOTED WITH SCATTERED RHONCHI TO UPPER LOBES ON AUSCULTATION. AT BEDSIDE. MICROALBUMIN WAS ELEVATED AT 92. LABS WNL EXCEPT: H/H 9.2/28.9, POTASSIUM 5.3, CARBON DIOXIDE 33.5, BUN/CREAT 42/1.59, GFR 34, GLUCOSE 275, CALCIUM 8.4, BNP 279, ALBUMIN 3.0. HGB A1C 8.6. WE PLANNED FOR DISCHARGE. INSTRUCTIONS FOR MEDICATIONS AND FOLLOW UP WERE GIVEN TO PATIENT AND FAMILY, BOTH VOICED UNDERSTANDING. PATIENT DISCHARGED HOME IN STABLE CONDITION WITH FAMILY. - Discharge Medications Discharge Medications: Acetaminophen with Codeine [Tylenol w/Codeine #4 (300 mg/60 mg)] 1 each PO Q8H PRN 05/30/17 [History] Diazepam [VALIUM 5 MG *] 5 mg PO BID PRN 05/30/17 [History] Miglitol [Glyset] 1 tab PO TID 05/30/17 [History] Sertraline HCl 50 mg PO AC 05/30/17 [History] B-Complex W/ C-Min-Fe & Folic [HEMOCYTE-PLUS *] 1 tab PO DAILY #30 tab 06/03/17 [Rx] Sitagliptin Phosphate [JANUVIA 100 MG *] 100 mg PO DAILY #30 tab 06/03/17 [Rx] - Discharge Disposition Discharge Disposition: PATIENT IS TO FOLLOW UP IN OUR [facility] OFFICE ON 06/09/17.
== END 2017-06-03 13:15 | disposition home or self-care (01) | DRG 292 ==
LOC: ER 16:43 → MED/SURG 19:17 → OBSVTOIN 05-31 08:30
PROVIDERS: ADMIT Internal Medicine; ATTEND Internal Medicine
DX: I50.43 Acute on chronic combined systolic (congestive) and diastolic (congestive) heart failure (principal); F33.9 Major depressive disorder, recurrent, unspecified; J90 Pleural effusion, not elsewhere classified; J98.11 Atelectasis; R06.09 Other forms of dyspnea; R07.2 Precordial pain; R06.02 Shortness of breath; R63.5 Abnormal weight gain; J44.9 Chronic obstructive pulmonary disease, unspecified; E11.65 Type 2 diabetes mellitus with hyperglycemia; E78.2 Mixed hyperlipidemia; R94.31 Abnormal electrocardiogram [ECG] [EKG]; R60.0 Localized edema; E03.8 Other specified hypothyroidism; I10 Essential (primary) hypertension; F41.8 Other specified anxiety disorders; K21.9 Gastro-esophageal reflux disease without esophagitis; Z79.4 Long term (current) use of insulin; D64.89 Other specified anemias
CPT/HCPCS: 36415; 36600; 51702; 71010; 80053; 80061; 81001; 82043; 82550; 82553; 82803; 83036; 83880; 84484; 85025; 93005; 93010; 93306; 94640; 94760; 96365; 96374; 96375; 99284; A4216; A4222; P9047; G0378; J1815; J1940; J2930; J7620

== ENCOUNTER 2017-06-10 11:57 | Observation (INO) | payer OTHER ==
[2017-06-10] MEDS ORDERED: DUONEB 0.5 MG/3 MG NEB ONE (12:11)
[2017-06-10] MEDS ORDERED: SOLU-Medrol 125 MG VIAL IVP ONE (12:11)
[2017-06-10] MEDS ORDERED: LASIX IVP ONE ×2 (12:11→12:16)
--- NOTE | 2017-06-10 12:13 | DR.GENAD ---
HPI - PCP Primary Care Physician: MITZI - HPI Comment HPI Comment: SYMTOMS WORSE TODAY. - Complaint/Symptoms Chief Complaint Doctors Comments: INCREASING SOB AND OXYGEN DESATURATION. PATIENT ON HOME OXYGEN. RUNNING FEVER AT HOME. Chief Complaint:: SOB AND COMPLAINTS OF HAVING TO URINATE ALOT AND OFTEN. CALLED OFFICE AND THEY TOLD HER THAT SHE PROBABLY HAD UTI AND TO COME TO HOSPITAL - Nurses notes reviewed Nurses Notes Review: Yes - Source History Provided: Patient, Family Member - Mode of Arrival Mode of Arrival: Wheelchair - Timing Onset of Chief Complaint: 06/09/17 Came on: Gradually - Duration Duration: Constant Duration: Days - Severity Severity: Moderate PMH - PMH Past Medical History: Yes Past Medical History: Anxiety, CHF, COPD, Dementia, Depression, Diabetes, Dyslipidemia, GERD, Hypothyroidism Past Surgical History: Yes Surgical History: Appendectomy, Hysterectomy, Ortho Surgery - Family History History of Family Medical Conditions: No (UNSURE) - Social History Type of Tobacco Use: Cigarettes Does any household member use tobacco: No Alcohol Use: None Do you use any recreational Drugs:: No Lives With: Spouse Lives Where: Home - infectious screening In the last 2 months have you had wt loss of >10#?: NO Have you had fever, night sweats or hemotysis?: No Have you traveled outside the country in the last 6 months?: No Isolation: Standard ROS - Review of Systems Constitutional: Fever, Weakness, Fatigue, Loss of Appetite. negative: Chills, Diaphoresis Eyes: No Symptoms Reported. negative: Eye Pain, Discharge ENTM: negative: Ear Pain, Nose Discharge, Nose Congestion, Throat Pain Respiratoy: Productive Cough, Non-Productive Cough, Short of Breath, Wheezing. negative: Hemoptysis Cardiovascular: Chest Pain, Edema Gastrointestinal/Abdominal: Nausea. negative: Abdominal Pain, Vomiting Genitourinary: No Symptoms Reported. negative: Dysuria, Frequency, Hematuria Neurological: Headache, Weakness, Dizziness Musculoskeletal: Back Pain, Muscle Pain Integumentary: Change in Color Hematologic/Lymphatic: Easy Bruising Endocrine: No Symptoms Reported All Other Systems: Reviewed and Negative PE - Vital Signs Vitals: Temperature 98.8 F Pulse Rate 60 Respiratory Rate 22 Blood Pressure [Left Arm] 122/56 Blood Pressure [Right Arm] 134/64 Blood Pressure 152/64 O2 Sat by Pulse Oximetry 95 - General Limitations: No Limitations General Appearance: Alert - Head Head Exam: Normal Inspection - Eyes Eye exam: Normal Appearance - ENT ENT Exam: Normal External Ear Exam External Ear Exam: Normal External Inspection TM/Canal Exam: Bilateral Normal Nose Exam: Normal Nose Exam Mouth Exam: Normal Inspection Throat Exam: Normal Inspection - Neck Neck Exam: Trachea Midline - Chest Chest Inspection: Symmetric Chest Wall Rise, Tenderness - Respiratory Respiratory Exam: Normal Lung Sounds Bilat, Accessory Muscle Use, Prolonged Expiratory Phase, Respiratory Distress Respiratory Exam: Bilateral Wheezing, Bilateral Rhonchi, Upper Wheezing, Upper Rhonchi, Lower Wheezing, Lower Rhonchi - Cardiovascular Cardiovascular Exam: Regular Rate, Normal Rhythm, Normal Heart Sounds - Abdominal Exam Abdominal Exam: Normal Bowel Sounds, Soft. negative: Tenderness - Extremities Extremities Exam: Edema - Back Back Exam: Normal Inspection - Psychiatric Psychiatric Exam: Anxious - Skin Skin Exam: Erythema MDM - Additional Information Additional Information Obtained From: Family - Differential Diagnosis Differential Diagnosis: CHF, COPD EXACERBATION, UTI, PNEUMONIA Course - Treatment Treatment: SEE ORDERS - Education/Counseling Education/Counseling: Patient, Family, Education Educated On: Treatment, Diagnosis, Needs for Follow Up ROR - Labs Reviewed Laboratory Results Reviewed?: Yes Result Diagrams: 06/10/17 12:21 06/10/17 12:21 Laboratory: WBC 6.3 X10^3/uL (3.6-10.0) 06/10/17 12:21 RBC 3.58 X10^6/uL (3.5-5.4) 06/10/17 12:21 Hgb 9.5 g/dL (12.0-16.0) L 06/10/17 12:21 Hct 29.4 % (36.0-47.0) L 06/10/17 12:21 MCV 81.9 fL (80.0-100.0) 06/10/17 12:21 MCH 26.4 pg (27.0-34.0) L 06/10/17 12:21 MCHC 32.2 g/dL (33.0-35.0) L 06/10/17 12:21 RDW 20.1 % (11.6-16.5) H 06/10/17 12:21 Plt Count 175 X10^3/uL (150.0-450.0) 06/10/17 12:21 Plt Count Comment Adequate (ADEQUATE) 06/10/17 12:21 MPV 10.0 fL (7.4-11.0) 06/10/17 12:21 Neut % 78.1 % (42.0-75.0) H 06/10/17 12:21 Lymph % 12.3 % (21.0-51.0) L 06/10/17 12:21 [place] % 7.4 % (0.0-13.0) 06/10/17 12:21 Eos % 1.5 % (0.9-2.9) 06/10/17 12:21 Baso % 0.7 % (0.2-1.0) 06/10/17 12:21 Neut # 4.9 x10^3/uL (2.2-4.8) H 06/10/17 12:21 Lymph # 0.8 X10^3/uL (1.3-2.9) L 06/10/17 12:21 [place] # 0.5 x10^3/uL (0.3-0.8) 06/10/17 12:21 Eos # 0.1 x10^3/uL (0.0-0.2) 06/10/17 12:21 Baso # 0.0 X10^3/uL (0.0-0.1) 06/10/17 12:21 Absolute Nucleated RBC 0.1 /100WBC 06/10/17 12:21 Plt Morphology Comment Normal (NORMAL) 06/10/17 12:21 RBC Morphology Abnormal (NORMAL) A 06/10/17 12:21 Anisocytosis 1+ A 06/10/17 12:21 Sample Site L rad 06/10/17 12:36 ABG pH 7.410 (7.35-7.45) 06/10/17 12:36 ABG pCO2 50.0 mmHg (35.0-45.0) H 06/10/17 12:36 ABG pO2 75.0 mmHg (80.0-100.0) L 06/10/17 12:36 ABG HCO3 31.7 mmol/L (22-26) H* 06/10/17 12:36 ABG O2 Saturation 95.0 % (90-100) 06/10/17 12:36 ABG Base Excess 5.9 mmol/L (-2.0-2.0) H 06/10/17 12:36 Kojo Test Pos 06/10/17 12:36 A-a Gradient 91.0 mmHg 06/10/17 12:36 FiO2 32.000 06/10/17 12:36 Blood Gas Comments Lester well, afh 06/10/17 12:36 Sodium 142 mmol/L (136-145) 06/10/17 12:21 Corrected Sodium 145 mmol/L (136-145) 06/10/17 12:21 Potassium 4.9 mmol/L (3.5-5.1) 06/10/17 12:21 Chloride 104 mmol/L (98-107) 06/10/17 12:21 Carbon Dioxide 31.6 mmol/L (21-32) 06/10/17 12:21 BUN 40 mg/dL (7-18) H 06/10/17 12:21 Creatinine 1.67 mg/dL (0.55-1.02) H 06/10/17 12:21 Est GFR (MDRD) Af Amer 39 (>60) L 06/10/17 12:21 Est GFR (MDRD) Non-Af 32 (>60) L 06/10/17 12:21 Glucose 242 mg/dL (65-99) H 06/10/17 12:21 Calcium 8.6 mg/dL (8.5-10.1) 06/10/17 12:21 Corrected Calcium 9.2 mg/dL (8.5-10.1) 06/10/17 12:21 Total Bilirubin 0.50 mg/dL (0.2-1.0) 06/10/17 12:21 AST 18 Units/L (15-37) 06/10/17 12:21 ALT 18 Units/L (12-78) 06/10/17 12:21 Alkaline Phosphatase 67 Units/L (46-116) 06/10/17 12:21 Creatine Kinase 19 Units/L (26-192) L 06/10/17 12:21 CK-MB (CK-2) 1.1 ng/mL (0-4.0) 06/10/17 12:21 CK/CKMB % Calc 5.8 % (<4) 06/10/17 12:21 Troponin I < 0.02 ng/mL (0-1.5) 06/10/17 12:21 B-Natriuretic Peptide 1390 pg/mL (0-79) H* 06/10/17 12:21 Total Protein 7.4 g/dL (6.4-8.2) 06/10/17 12:21 Albumin 3.2 g/dL (3.4-5.0) L 06/10/17 12:21 Globulin 4.2 g/dL (2.5-4.5) 06/10/17 12:21 Albumin/Globulin Ratio 0.8 Ratio (1.1-2.1) L 06/10/17 12:21 Specimen Type Clean catch urine 06/10/17 13:36 Urine Color Yellow (YELLOW) 06/10/17 13:36 Urine Appearance Cloudy (CLEAR) 06/10/17 13:36 Urine pH 6.0 (5.0 - 8.0) 06/10/17 13:36 Ur Specific [place] 1.015 (1.000-1.030) 06/10/17 13:36 Urine Protein 2+ (NEGATIVE) 06/10/17 13:36 Urine Glucose (UA) Negative (NEGATIVE) 06/10/17 13:36 Urine Ketones Negative (NEGATIVE) 06/10/17 13:36 Urine Occult Blood 2+ (NEGATIVE) 06/10/17 13:36 Urine Nitrite Positive (NEGATIVE) 06/10/17 13:36 Urine Bilirubin Negative (NEGATIVE) 06/10/17 13:36 Urine Urobilinogen Normal (NORMAL) 06/10/17 13:36 Ur Leukocyte Esterase 3+ (NEGATIVE) 06/10/17 13:36 Urine RBC 10-20 /HPF (NEGATIVE) 06/10/17 13:36 Urine WBC Tntc /HPF (NEGATIVE) 06/10/17 13:36 Ur Squamous Epith Cells Moderate /HPF (NEGATIVE) 06/10/17 13:36 Urine Bacteria 3+ /HPF (NEGATIVE) 06/10/17 13:36 Ur Culture Indicated? Yes/culture set up 06/10/17 13:36 - XRAY XRAY Interpreted by: Radiologist XRAY Findings: REPORT DISCUSS WITH PATIENT. - EKG Rhythm: NSR (EKG NOTED) - Diagnosis Discharge Problem: COPD exacerbation CHF (congestive heart failure) Qualifiers: Congestive heart failure type: combined Congestive heart failure chronicity: acute on chronic Qualified Code(s): I50.43 - Acute on chronic combined systolic (congestive) and diastolic (congestive) heart failure UTI (urinary tract infection) Qualifiers: Urinary tract infection type: site unspecified Hematuria presence: without hematuria Qualified Code(s): N39.0 - Urinary tract infection, site not specified - Discharge Plan Disposition: 09 ADMITTED INPATIENT Condition: Stable - Follow ups/Referrals - Instructions
[2017-06-10] MEDS ORDERED: SOLU-Medrol 125 MG VIAL ONE (12:16)
[2017-06-10 12:35] LABS: BASOPHILS % (AUTO) 0.7 % (0.2-1.0); EOSINOPHILS # (AUTO) 0.1 x10^3/uL (0.0-0.2); EOSINOPHILS % (AUTO) 1.5 % (0.9-2.9); HEMATOCRIT 29.4 % (36.0-47.0); HEMOGLOBIN 9.5 g/dL (12.0-16.0); LYMPHOCYTES # (AUTO) 0.8 X10^3/uL (1.3-2.9); LYMPHOCYTES % (AUTO) 12.3 % (21.0-51.0); MEAN CORPUSCULAR HEMOGLOBIN 26.4 pg (27.0-34.0); MEAN CORPUSCULAR HGB CONC 32.2 g/dL (33.0-35.0); MEAN CORPUSCULAR VOLUME 81.9 fL (80.0-100.0); MONOCYTES # (AUTO) 0.5 x10^3/uL (0.3-0.8); MONOCYTES % (AUTO) 7.4 % (0.0-13.0); NEUTROPHILS # (AUTO) 4.9 x10^3/uL (2.2-4.8); NEUTROPHILS % (AUTO) 78.1 % (42.0-75.0); PLATELET COUNT 175 X10^3/uL (150.0-450.0); RED BLOOD COUNT 3.58 X10^6/uL (3.5-5.4); RED CELL DISTRIBUTION WIDTH 20.1 % (11.6-16.5); WHITE BLOOD COUNT 6.3 X10^3/uL (3.6-10.0)
--- NOTE | 2017-06-10 12:37 | RAD ---
AP Chest Indication: Shortness of breath and weakness Comparison:06/03/2017 Findings: The trachea is midline. The cardiac silhouette i is mildly enlarged, unchanged. There is chronic co arsening of the interstitium without new airspace opacity pleural effusion or pneumothorax identifie d. No acute osseous abnormality. Healed proximal right humeral and distal left clavicle fractures ar e noted. The multiple chronic appearing left sided rib fractures are noted. IMPRESSION: 1. Stable examination demonstrating cardiomegaly and chronic coarsening of the interstitium. No acut e airspace disease or CHF. Reported By:
[2017-06-10 12:44] LABS: ANISOCYTOSIS 1+; PLATELET MORPHOLOGY COMMENT NORMAL (NORMAL)
[2017-06-10 12:47] LABS: ABG BASE EXCESS 5.9 mmol/L (-2.0-2.0); ABG HCO3 31.7 mmol/L (22-26)
[2017-06-10 12:48] LABS: ABG ALLEN TEST POS
[2017-06-10 12:49] LABS: BLOOD UREA NITROGEN 40 mg/dL (7-18); CALCIUM 8.6 mg/dL (8.5-10.1); CARBON DIOXIDE 31.6 mmol/L (21-32); CHLORIDE 104 mmol/L (98-107); COR NA(FOR HYPERGLY) 145 mmol/L (136-145); CREATININE 1.67 mg/dL (0.55-1.02); GLUCOSE 242 mg/dL (65-99); SODIUM 142 mmol/L (136-145); TROPONIN I < 0.02 ng/mL (0-1.5); eGFR BLACK RACES 39 (>60); eGFR NON BLACK RACES 32 (>60)
[2017-06-10 12:53] LABS: ALANINE AMINOTRANSFERASE 18 Units/L (12-78); ALBUMIN 3.2 g/dL (3.4-5.0); ALKALINE PHOSPHATASE 67 Units/L (46-116); ASPARTATE AMINO TRANSFERASE 18 Units/L (15-37); CKMB % 5.8 % (<4); COR CA(FOR HYPOALB) 9.2 mg/dL (8.5-10.1); CREATINE KINASE 19 Units/L (26-192); CREATINE KINASE MB 1.1 ng/mL (0-4.0); TOTAL PROTEIN 7.4 g/dL (6.4-8.2)
[2017-06-10 13:00] LABS: B-TYPE NATRIURETIC PEPTIDE 1390 pg/mL (0-79)
[2017-06-10] MEDS ORDERED: DUONEB 0.5 MG/3 MG ONE (13:07)
[2017-06-10 13:48] LABS: BILIRUBIN,URINE NEGATIVE (NEGATIVE); BLOOD/HEMOGLOBIN,URINE 2+ (NEGATIVE); GLUCOSE, URINE NEGATIVE (NEGATIVE); KETONES,URINE NEGATIVE (NEGATIVE); LEUKOCYTE ESTERASE ,URINE 3+ (NEGATIVE); NITRITES,URINE POSITIVE (NEGATIVE); PROTEIN,URINE 2+ (NEGATIVE); UROBILINOGEN,URINE NORMAL (NORMAL)
[2017-06-10 14:00] LABS: APPEARANCE,URINE CLOUDY (CLEAR); BACTERIA,URINE 3+ /HPF (NEGATIVE); COLOR,URINE YELLOW (YELLOW); SQUAMOUS EPITHELIAL CELL,UR MODERATE /HPF (NEGATIVE)
[2017-06-10] MEDS ORDERED: ROCEPHIN VIAL 1 GM 1 GM in NS 50 ML IV + SPIKE MINIBAG* 50 ML IV ONE (14:14)
[2017-06-10] MEDS ORDERED: ROCEPHIN VIAL 1 GM ONE (15:02)
[2017-06-10] MEDS: K-DUR TAB 20 MEQ PO SCH (17:28)
[2017-06-10 17:35] LABS: BILIRUBIN,URINE NEGATIVE (NEGATIVE); BLOOD/HEMOGLOBIN,URINE NEGATIVE (NEGATIVE); GLUCOSE, URINE 1+ (NEGATIVE); KETONES,URINE NEGATIVE (NEGATIVE); LEUKOCYTE ESTERASE ,URINE NEGATIVE (NEGATIVE); NITRITES,URINE NEGATIVE (NEGATIVE); PROTEIN,URINE 1+ (NEGATIVE); UROBILINOGEN,URINE NORMAL (NORMAL)
[2017-06-10 17:55] LABS: APPEARANCE,URINE CLEAR (CLEAR); BACTERIA,URINE NEGATIVE /HPF (NEGATIVE); COLOR,URINE YELLOW (YELLOW); RBC,URINE NONE SEEN /HPF (NEGATIVE); SQUAMOUS EPITHELIAL CELL,UR RARE /HPF (NEGATIVE)
[2017-06-10] MEDS: DUONEB 0.5 MG/3 MG NEB SCH ×2 (18:01→23:18)
[2017-06-10 18:03] LABS: CKMB % 3.7 % (<4); CREATINE KINASE 27 Units/L (26-192); CREATINE KINASE MB < 1.0 ng/mL (0-4.0); TROPONIN I < 0.02 ng/mL (0-1.5)
[2017-06-10] MEDS: LASIX IVP SCH (20:48)
[2017-06-10] MEDS: VALIUM PO PRN (20:48)
[2017-06-10 23:34] LABS: CKMB % 3.3 % (<4); CREATINE KINASE 30 Units/L (26-192); CREATINE KINASE MB < 1.0 ng/mL (0-4.0); TROPONIN I < 0.02 ng/mL (0-1.5)
[2017-06-10] MEDS: LOPRESSOR TAB 25 MG PO SCH (23:45)
[2017-06-10] MEDS: ELIQUIS PO SCH (23:45)
[2017-06-10] MEDS: NEURONTIN TAB 600 MG PO SCH (23:46)
[2017-06-10] MEDS: MAG-OX TAB PO SCH (23:46)
[2017-06-10] MEDS: ZOCOR TAB 40 MG PO SCH (23:46)
[2017-06-10] MEDS: ARICEPT TAB 10 MG PO SCH (23:46)
[2017-06-10] MEDS: SINGULAIR TAB 10 MG PO SCH (23:46)
[2017-06-10] MEDS: HumuLIN R SUBCUT PRN (23:47)
[2017-06-10] MEDS: PATIENT'S HOME MEDICATION PO PRN (23:50)
[2017-06-11] MEDS: DUONEB 0.5 MG/3 MG NEB SCH ×3 (04:59→17:08)
[2017-06-11] MEDS: PATIENT'S HOME MEDICATION PO SCH ×3 (06:14→22:17)
[2017-06-11] MEDS: SYNTHROID 112 mcg TAB PO SCH (06:14)
[2017-06-11 06:21] LABS: ALBUMIN 3.1 g/dL (3.4-5.0); CALCIUM 8.6 mg/dL (8.5-10.1); CARBON DIOXIDE 30.8 mmol/L (21-32); CHOL/HDL RATIO 2.7 (0.0-5.0); COR CA(FOR HYPOALB) 9.3 mg/dL (8.5-10.1); CREATININE 1.86 mg/dL (0.55-1.02); TOTAL PROTEIN 7.6 g/dL (6.4-8.2)
[2017-06-11] MEDS: HumuLIN R SUBCUT PRN ×4 (06:30→20:36)
[2017-06-11 06:32] LABS: BASOPHILS % (AUTO) 0.2 % (0.2-1.0); HEMATOCRIT 28.9 % (36.0-47.0); HEMOGLOBIN 9.4 g/dL (12.0-16.0); LYMPHOCYTES # (AUTO) 0.6 X10^3/uL (1.3-2.9); LYMPHOCYTES % (AUTO) 18.2 % (21.0-51.0); MEAN CORPUSCULAR HEMOGLOBIN 26.3 pg (27.0-34.0); MEAN CORPUSCULAR HGB CONC 32.4 g/dL (33.0-35.0); MEAN CORPUSCULAR VOLUME 81.3 fL (80.0-100.0); MEAN PLATELET VOLUME 10.4 fL (7.4-11.0); MONOCYTES # (AUTO) 0.1 x10^3/uL (0.3-0.8); MONOCYTES % (AUTO) 2.7 % (0.0-13.0); NEUTROPHILS # (AUTO) 2.5 x10^3/uL (2.2-4.8); NEUTROPHILS % (AUTO) 78.9 % (42.0-75.0); PLATELET COUNT 169 X10^3/uL (150.0-450.0); RED BLOOD COUNT 3.55 X10^6/uL (3.5-5.4); RED CELL DISTRIBUTION WIDTH 19.6 % (11.6-16.5); WHITE BLOOD COUNT 3.2 X10^3/uL (3.6-10.0)
[2017-06-11] MEDS: ROCEPHIN VIAL 1 GM 1 GM in NS 50 ML IV + SPIKE MINIBAG* 50 ML IV SCH (09:17)
[2017-06-11] MEDS: NexIUM PO SCH (09:18)
[2017-06-11] MEDS: ASPIRIN EC 81 MG PO SCH (09:18)
[2017-06-11] MEDS: HEMOCYTE-PLUS PO SCH (09:19)
[2017-06-11] MEDS: JANUVIA PO SCH (09:19)
[2017-06-11] MEDS: ELIQUIS PO SCH ×2 (09:19→20:22)
[2017-06-11] MEDS: MAG-OX TAB PO SCH ×2 (09:19→20:22)
[2017-06-11] MEDS: K-DUR TAB 20 MEQ PO SCH (09:19)
[2017-06-11] MEDS: LOPRESSOR TAB 25 MG PO SCH ×2 (09:19→20:24)
[2017-06-11] MEDS: NORVASC TAB 5 MG PO SCH (09:20)
[2017-06-11] MEDS: DIOVAN TAB 80 MG PO SCH (09:21)
[2017-06-11] MEDS: LASIX IVP SCH ×2 (09:21→20:24)
[2017-06-11] MEDS ORDERED: NS 250 ML IV 250 ML IV ONE (09:33)
[2017-06-11] MEDS ORDERED: PATIENT'S HOME MEDICATION (Acetaminophen With Codeine [Acetaminophen-Cod #4 Tablet] 1 TAB) PO PRN (11:10)
[2017-06-11] MEDS ORDERED: VALIUM PO PRN (11:10)
[2017-06-11] MEDS ORDERED: INSULIN DEGLUDEC 40 UNIT SUBCUT SCH (11:15)
[2017-06-11] MEDS ORDERED: PATIENT'S HOME MEDICATION (Apixaban [Eliquis] 2.5 MG) PO SCH (11:15)
[2017-06-11] MEDS ORDERED: NORVASC TAB 5 MG PO SCH (12:00)
[2017-06-11] MEDS ORDERED: MAG-OX TAB PO SCH (12:00)
[2017-06-11] MEDS ORDERED: DIOVAN TAB 80 MG PO SCH (12:00)
[2017-06-11] MEDS ORDERED: ASPIRIN EC 81 MG PO SCH (12:00)
[2017-06-11] MEDS ORDERED: NexIUM PO SCH (12:00)
[2017-06-11] MEDS ORDERED: LASIX PO SCH (12:00)
[2017-06-11] MEDS ORDERED: HEMOCYTE-PLUS PO SCH (12:00)
[2017-06-11] MEDS ORDERED: JANUVIA PO SCH (12:00)
[2017-06-11] MEDS ORDERED: LOPRESSOR TAB 25 MG PO SCH (12:00)
[2017-06-11] MEDS ORDERED: MIGLITOL PO SCH (14:00)
[2017-06-11] MEDS ORDERED: SYNTHROID 112 mcg TAB PO SCH (16:30)
[2017-06-11] MEDS ORDERED: SNACK - Diabetic Appropriate PO SCH (20:00)
[2017-06-11] MEDS: ARICEPT TAB 10 MG PO SCH (20:22)
[2017-06-11] MEDS: NEURONTIN TAB 600 MG PO SCH (20:23)
[2017-06-11] MEDS: ZOCOR TAB 40 MG PO SCH (20:23)
[2017-06-11] MEDS: SINGULAIR TAB 10 MG PO SCH (20:23)
[2017-06-11] MEDS: VALIUM PO PRN (20:23)
[2017-06-11] MEDS: PATIENT'S HOME MEDICATION PO PRN (20:25)
[2017-06-11] MEDS ORDERED: PATIENT'S HOME MEDICATION PO SCH (21:00)
[2017-06-11] MEDS ORDERED: ARICEPT TAB 10 MG PO SCH ×2 (21:00)
[2017-06-11] MEDS ORDERED: SINGULAIR TAB 10 MG PO SCH (21:00)
[2017-06-11] MEDS ORDERED: ZOCOR TAB 40 MG PO SCH (21:00)
[2017-06-11] MEDS ORDERED: NEURONTIN TAB 600 MG PO SCH (21:00)
[2017-06-12] MEDS: DUONEB 0.5 MG/3 MG NEB SCH ×2 (00:16→05:09)
--- NOTE | 2017-06-12 05:32 | RAD ---
Chest, one view Indication: Shortness of breath. Comparison: 06/10/2017 Findings: Stable mild cardiac silhouette enlargement without overt edema. There are chronic intersti tial changes of the lungs without dense infiltrate or large effusion. Impression: No significant change from prior. Reported By:
[2017-06-12] MEDS: PATIENT'S HOME MEDICATION PO SCH (06:09)
[2017-06-12 06:16] LABS: BASOPHILS # (AUTO) 0.1 X10^3/uL (0.0-0.1); BASOPHILS % (AUTO) 0.6 % (0.2-1.0); EOSINOPHILS # (AUTO) 0.1 x10^3/uL (0.0-0.2); EOSINOPHILS % (AUTO) 0.7 % (0.9-2.9); HEMATOCRIT 27.2 % (36.0-47.0); HEMOGLOBIN 8.9 g/dL (12.0-16.0); LYMPHOCYTES # (AUTO) 1.8 X10^3/uL (1.3-2.9); LYMPHOCYTES % (AUTO) 19.9 % (21.0-51.0); MEAN CORPUSCULAR HEMOGLOBIN 26.6 pg (27.0-34.0); MEAN CORPUSCULAR HGB CONC 32.9 g/dL (33.0-35.0); MEAN PLATELET VOLUME 10.3 fL (7.4-11.0); MONOCYTES # (AUTO) 0.4 x10^3/uL (0.3-0.8); MONOCYTES % (AUTO) 4.2 % (0.0-13.0); NEUTROPHILS # (AUTO) 6.6 x10^3/uL (2.2-4.8); NEUTROPHILS % (AUTO) 74.6 % (42.0-75.0); PLATELET COUNT 184 X10^3/uL (150.0-450.0); RED BLOOD COUNT 3.36 X10^6/uL (3.5-5.4); RED CELL DISTRIBUTION WIDTH 20.3 % (11.6-16.5); WHITE BLOOD COUNT 8.9 X10^3/uL (3.6-10.0)
[2017-06-12 06:28] LABS: ALBUMIN 2.8 g/dL (3.4-5.0); CALCIUM 8.5 mg/dL (8.5-10.1); CARBON DIOXIDE 34.5 mmol/L (21-32); COR CA(FOR HYPOALB) 9.5 mg/dL (8.5-10.1); CREATININE 1.88 mg/dL (0.55-1.02); TOTAL PROTEIN 6.6 g/dL (6.4-8.2)
[2017-06-12] MEDS: SYNTHROID 112 mcg TAB PO SCH (06:30)
[2017-06-12] MEDS: HumuLIN R SUBCUT PRN ×2 (06:31→12:10)
[2017-06-12] MEDS: PATIENT'S HOME MEDICATION PO PRN (06:59)
[2017-06-12 07:01] LABS: ANISOCYTOSIS 1+; HYPOCHROMASIA 1+; MICROCYTOSIS 1+; PLATELET MORPHOLOGY COMMENT NORMAL (NORMAL)
[2017-06-12 08:59] VITALS: BMI 35.6
--- NOTE | 2017-06-12 09:24 | DR.H&P ---
H&P - History & Physical for Day of: H&P Date: 06/10/17 - Chief Complaint Chief Complaint: shortness of breath, increased frequancy of urination - Allergies Allergies/Adverse Reactions: Allergies Allergy/AdvReac Type Severity Reaction Status Date / Time lovastatin Allergy Verified 05/30/17 16:56 - History of Present Illness History of Present Illness: Patient is a 76yo female who presented to the emergency room with compaints of increased shortness of breath, fever and increased urinary freqeuncy. Patient founf to have a urinary tract infection and was admitted fot futher treatment - Past Medical History Past Medical History: Anxiety, CHF, COPD, Dementia, Depression, Diabetes, Dyslipidemia, GERD, Hypothyroidism Additional Medical History: EMPHYSEMA, - Past Surgical History Surgical History: Appendectomy, Hysterectomy, Ortho Surgery - Social History Does patient currently use any type of tobacco product: No Have you used tobacco products in the last 12 months: No Type of Tobacco Use: Cigarettes Does any household member use tobacco: No Alcohol Use: None Drug Use: None - Medications Home Medications: Acetaminophen with Codeine [Acetaminophen-Cod #4 Tablet] 1 tab PO Q8H PRN [History Confirmed 06/10/17] Diazepam [VALIUM 5 MG *] 1 tab PO BID PRN 06/10/17 [History Confirmed 06/10/17] Insulin R (Regular) [HUMULIN R (REGULAR) INSULIN 10 ML VIAL *] 1 unit SQ PRN PRN 06/10/17 [History Confirmed 06/10/17] - Review of Systems Constitutional: Fever, Weakness Eyes: No Symptoms Reported ENT: No Symptoms Reported Respiratory: Cough, Shortness of Breath Cardiovascular: No Symptoms Reported Gastrointestinal: No Symptoms Reported Genitourinary: Frequency Musculoskeletal: No Symptoms Reported Skin: No Symptoms Reported Neurological: No Symptoms Reported - Physical Exam Vital Signs: Temperature 98.6 F Pulse Rate [Left Brachial] 61 Pulse Rate 66 Respiratory Rate 20 Blood Pressure [Left Arm] 105/41 O2 Sat by Pulse Oximetry 99 Oriented: Normal Eyes: Normal Ear: Normal Nose: Normal Throat: Normal Respiratory: Clear Throughout Cardiovascular: Normal : Normal Auscultation: Bowel Sounds: Normal Palpation: Normal Tenderness: Normal Skin: Normal Musculoskeletal: Normal Psychiatric: Normal Mood Description: Calm, Appropriate Affect: Normal Speech Pattern: Clear, Appropriate - Assessment/Plan (1) COPD exacerbation Status: Acute Plan: supplmental oxygen (2) UTI (urinary tract infection) Qualifiers: Urinary tract infection type: site unspecified Hematuria presence: without hematuria Indwelling urinary catheter type: I Encounter type: E Qualified Code(s): N39.0 - Urinary tract infection, site not specified Status: Acute Plan: start iv antibiotics and repeat labs in the am awiat urine culture
[2017-06-12] MEDS: ROCEPHIN VIAL 1 GM 1 GM in NS 50 ML IV + SPIKE MINIBAG* 50 ML IV SCH ×2 (09:47→09:59)
[2017-06-12] MEDS: DIOVAN TAB 80 MG PO SCH (09:48)
[2017-06-12] MEDS: JANUVIA PO SCH (09:48)
[2017-06-12] MEDS: K-DUR TAB 20 MEQ PO SCH (09:48)
[2017-06-12] MEDS: MAG-OX TAB PO SCH (09:48)
[2017-06-12] MEDS: HEMOCYTE-PLUS PO SCH (09:49)
[2017-06-12] MEDS: LOPRESSOR TAB 25 MG PO SCH (09:49)
[2017-06-12] MEDS: ASPIRIN EC 81 MG PO SCH (09:50)
[2017-06-12] MEDS: NORVASC TAB 5 MG PO SCH (09:50)
[2017-06-12] MEDS: ELIQUIS PO SCH (09:50)
[2017-06-12] MEDS: NexIUM PO SCH (09:50)
[2017-06-12] MEDS: LASIX IVP SCH (09:51)
[2017-06-12 12:22] VITALS: BP 130/47
== END 2017-06-12 13:30 | disposition home or self-care (01) ==
LOC: ER 12:16 → ICU 14:14
PROVIDERS: ADMIT Obstetrics & Gynecology Obstetrics; ATTEND Internal Medicine
DX: J44.1 Chronic obstructive pulmonary disease with (acute) exacerbation (principal); I50.43 Acute on chronic combined systolic (congestive) and diastolic (congestive) heart failure; N39.0 Urinary tract infection, site not specified; R06.02 Shortness of breath; E78.2 Mixed hyperlipidemia; K21.9 Gastro-esophageal reflux disease without esophagitis; E03.8 Other specified hypothyroidism; F41.8 Other specified anxiety disorders; R35.0 Frequency of micturition; E11.65 Type 2 diabetes mellitus with hyperglycemia; R41.82 Altered mental status, unspecified; B96.1 Klebsiella pneumoniae [K. pneumoniae] as the cause of diseases classified elsewhere; Z79.899 Other long term (current) drug therapy; Z79.1 Long term (current) use of non-steroidal anti-inflammatories (NSAID)
CPT/HCPCS: 36415; 36600; 71010; 80053; 80061; 81001; 82550; 82553; 82803; 82947; 83880; 84484; 85025; 87086; 87088; 87186; 93005; 94640; 96365; 96374; 96375; 99284; A4222; G0378; J0696; J1815; J1940; J2930; J7620